=== PATIENT | female | born 1975 | race Caucasian/White ===

== ENCOUNTER → 2017-08-21 15:56 | Outpatient (CLI) | payer OTHER, SELFPAY ==
--- NOTE | 2017-08-21 15:59 | HPBI_ITS ---
MAMMOGRAPHY - BILATERAL SCREENING REASON FOR EXAM: Female, 42 years old. Routine annual screening examination. PERTINENT HISTORY: Non-contributory. TECHNIQUE: Digital bilateral breast jaimie (3D mammographic acquisition) in the CC and MLO projections. 2-D mediolateral oblique (MLO) and craniocaudad (CC) views of both breasts were obtained. CAD: Full Field Digital Mammography with Computer Added Detection was performed. COMPARISON: Comparison is made with prior examination dated August 06, 2016. FINDINGS: Breast Composition: The breasts are extremely dense, which lowers the sensitivity of mammography. There are no dominant masses or suspicious calcifications. No other significant abnormalities are identified. There has been no significant change since the prior study. HPBI/SCREENING MAMM (CAD), BILAT IMPRESSION: Stable bilateral screening mammogram. Yearly follow-up mammogram recommended. (A) ASSESSMENT CATEGORY: BIRADS Category 1: Negative. A letter regarding these results will be sent to the patient by the facility within 30 days. Approximately 10% of breast cancers are not detected by mammography. A normal mammogram should not delay biopsy of a clinically suspicious abnormality. [id number] Electronically Signed: Larry Woo MD at 8:42 EDT Tel [phone], Service support ,
== END ==
PROVIDERS: Visit Provider Obstetrics & Gynecology
DX: Z12.31 Encounter for screening mammogram for malignant neoplasm of breast (principal)
CPT/HCPCS: 77063; 77067

== ENCOUNTER → 2019-01-14 13:27 | Outpatient (CLI) | payer OTHER, SELFPAY ==
--- NOTE | 2019-01-14 13:36 | BI_ITS ---
MAMMOGRAPHY - BILATERAL SCREENING REASON FOR EXAM: Female, 43 years old. Routine annual screening examination. PERTINENT HISTORY: Grandmother with breast cancer. TECHNIQUE: Digital bilateral breast austen (3D mammographic acquisition) in the CC and MLO projections. 2-D mediolateral oblique (MLO) and craniocaudad (CC) views of both breasts were obtained. CAD: Full Field Digital Mammography with Computer Added Detection was performed. COMPARISON: Comparison is made with prior examination August 21, 2017 and July 29, 2016. FINDINGS: Breast Composition: The breasts are extremely dense, which lowers the sensitivity of mammography. There are no dominant masses or suspicious calcifications. No other significant abnormalities are identified. There has been no significant change since the prior study. BI/SCREEN MAMM (CAD) W/AUSTEN BILAT IMPRESSION: Stable bilateral screening mammogram. Yearly follow-up mammogram recommended. (A) ASSESSMENT CATEGORY: BIRADS Category 1: Negative. A letter regarding these results will be sent to the patient by the facility within 30 days. Approximately 10% of breast cancers are not detected by mammography. A normal mammogram should not delay biopsy of a clinically suspicious abnormality. [id number] Electronically Signed: Larry Woo, at 14:48 EDT , Service support ,
== END ==
PROVIDERS: Family Provider Family Medicine; PCP Family Medicine; Referring Provider Obstetrics & Gynecology; Visit Provider Obstetrics & Gynecology
DX: Z12.31 Encounter for screening mammogram for malignant neoplasm of breast (principal)
CPT/HCPCS: 77063; 77067

== ENCOUNTER → 2019-12-20 | Outpatient (CLI) | payer OTHER, SELFPAY ==
[2019-12-23 14:35] LABS: HPV Reflexed? NOT INDICATED
== END | disposition home or self-care (01) ==
LOC: LABSPEC 13:59
PROVIDERS: PCP Family Medicine; Visit Provider Obstetrics & Gynecology
DX: Z12.4 Encounter for screening for malignant neoplasm of cervix (principal)
CPT/HCPCS: 88175; G0145

== ENCOUNTER → 2019-12-24 | Outpatient (CLI) | payer OTHER, SELFPAY ==
--- NOTE | 2019-12-24 07:38 | BI_ITS ---
MAMMOGRAPHY - BILATERAL SCREENING REASON FOR EXAM: Female, 44 years old. Routine annual screening examination. PERTINENT HISTORY: Grandmother with breast cancer. TECHNIQUE: Digital bilateral breast austen (3D mammographic acquisition) in the CC and MLO projections. 2-D mediolateral oblique (MLO) and craniocaudad (CC) views of both breasts were obtained. CAD: Full Field Digital Mammography with Computer Added Detection was performed. COMPARISON: Comparison is made with prior examination of January 14, 2019 and August 21, 2017. FINDINGS: Breast Composition: The breasts are extremely dense, which lowers the sensitivity of mammography. There are no dominant masses or suspicious calcifications. Stable benign-appearing bilateral axillary lymph nodes. No other significant abnormalities are identified. There has been no significant change since the prior study. BI/SCREEN MAMM (CAD) W/AUSTEN BILAT IMPRESSION: Stable bilateral screening mammogram. Yearly follow-up mammogram recommended. (A) ASSESSMENT CATEGORY: BIRADS Category 2: Benign. A letter regarding these results will be sent to the patient by the facility within 30 days. Approximately 10% of breast cancers are not detected by mammography. A normal mammogram should not delay biopsy of a clinically suspicious abnormality. [id number] Electronically Signed: Larry Woo, at 8:33 EDT , Service support ,
== END | disposition home or self-care (01) ==
LOC: OPBI 07:37
PROVIDERS: PCP Family Medicine; Referring Provider Obstetrics & Gynecology; Visit Provider Obstetrics & Gynecology
DX: Z12.31 Encounter for screening mammogram for malignant neoplasm of breast (principal)
CPT/HCPCS: 77063; 77067

== ENCOUNTER 2020-04-07 05:37 | Inpatient (IN) | payer OTHER, SELFPAY ==
[2020-03-06 15:31] VITALS: BMI 23.0
--- NOTE | 2020-03-30 16:09 | EKG12_ITS ---
Test Reason : PRE OP Blood Pressure : / mmHG Vent. Rate : 078 BPM Atrial Rate : 078 BPM P-R Int : 106 ms QRS Dur : 074 ms QT Int : 388 ms P-R-T Axes : 061 056 025 degrees QTc Int : 442 ms Sinus rhythm with sinus arrhythmia with short AL Otherwise normal ECG Confirmed by LAMONT FRANKLIN, KIKI ([id number]), material expeditor WALI NGUYEN ([id number]) on 04/03/2020 1:00:39 PM Referred By: Nikhil La Confirmed By:KIKI MIGUEL MD
[2020-03-30 16:54] LABS: Absolute Lymphocyte Count 2.39 X10^3/uL (0.83-4.51); Absolute Neutrophil Count 2.8 X10^3/uL (2.0-7.7); Basophil# 0.05 X10^3/uL; Basophil% 0.8 % (0-1); Eosinophils% 3.4 % (0-5); Hemoglobin 12.4 g/dL (12.0-15.0); Lymphocyte # 2.39 X10^3/ul (4.0); Lymphocyte % 40.5 % (19-41); Mean Corp Hgb Conc 32.6 g/dL (32-36); Mean Corpuscular Hgb 29.3 pg (27.0-32.0); Mean Corpuscular Volume 89.8 fL (81-99); Mean Platelet Vol. 10.1 fl (6.2-12.0); Monocyte# 0.43 X10^3/uL; Monocyte% 7.3 % (0-10); NRBC Flagged by Analyzer 0 % (0-5); Neutrophil # 2.82 X10^3/uL (2.7-7.7); Neutrophil % 47.8 % (47-70); Platelet Count 313 K/mm3 (150-450); RBC Distribution Width CV 11.9 % (11.6-14.6); RBC Distribution Width SD 39.1 fl (35.1-43.9); Red Blood Count 4.23 M/mm3 (4.2-5.4); White Blood Count 5.9 K/mm3 (4.4-11.0)
[2020-03-30 17:27] LABS: Partial Thromboplast Time 27.7 Seconds (24.1-36.2)
[2020-03-30 17:33] LABS: Anion Gap 4 (5-15); BUN 7 mg/dL (7-18); Calcium,Total 8.2 mg/dL (8.5-10.1); Chloride 107 mmol/L (98-107); Creatinine, Serum 0.78 mg/dL (0.55-1.02); EST Glomerular Filtration Rate 85 mL/min (>60); Est Glom Filt Rate - Afr Amer 103 mL/min (>60); Glucose 96 mg/dL (74-106); Potassium 3.6 mmol/L (3.5-5.1); Sodium Level 138 mmol/L (136-145)
[2020-03-30 17:44] LABS: AST(SGOT) 13 U/L (15-37); Alanine Aminotransfer ALT/SGPT 18 U/L (13-56); Albumin, Serum 3.5 g/dL (3.2-5.0); Alkaline Phosphatase 62 U/L (45-117); Globulin 3.6 g/dL (2.2-4.2); Magnesium 2.3 mg/dL (1.6-2.6); Protein, Total 7.1 g/dL (6.4-8.2)
[2020-03-30 18:02] LABS: HIV - WCH Non-Reactive (Nonreactive)
[2020-04-01 05:07] LABS: HEPATITIS B SURFACE AG Negative (Negative); Hepatitis A AB, Total Negative (Negative); Hepatitis A IgM Antibody Negative (Negative); Hepatitis B Core AB IgM Negative (Negative); Hepatitis B Core Ab Total Negative (Negative); Hepatitis C Ab <0.1 s/co ratio (0.0-0.9)
[2020-04-03 10:34] LABS: Hep B Surface Antibodies Non Reactive (.)
[2020-04-07] VITALS (14 sets, daily range): BP systolic 105–153; BP diastolic 74–101; PULSE 60–103; RESP 14–18; TEMP 36.2–37.3; O2SAT 97–100; BMI 23.8; BMI 23.7
--- NOTE | 2020-04-07 06:00 | HP_ITS ---
Intake Intake Visit Reasons: low back Accompanied by: Spouse Is patient in pain?: Yes Pain scale (1-10): 5 Allergies No Known Allergies Allergy (Unverified 03/31/20 08:05) Medications cholecalciferol (vitamin D3) 25 mcg (1,000 unit) capsule 25 mcg PO DAILY 03/06/20 [History Confirmed 03/31/20] multivitamin 1 tab PO DAILY 03/06/20 [History Confirmed 03/31/20] norethindrone 1.5 mg-ethinyl estradiol 30 mcg(21)/iron 75 mg(7) tablet 1 tab PO DAILY 03/06/20 [History Confirmed 03/31/20] PFSH Surgical History (Updated 03/06/20 @ 15:35 by Nathalie Mcdowell) History of tonsillectomy (Acute) h/o lumbar surgery (Acute) Family History (Updated 03/06/20 @ 15:36 by Nathalie Mcdowell) Mother Colon cancer Father Hypertension Social History (Updated 03/31/20 @ 08:[address] Nikhil La DO) household members: spouse, children Smoking Status: Never smoker alcohol intake: never HPI low back: Surgical H&P: Yes Details: D1 a returns for follow-upParts of this documentation were recorded by a scribe, this documentation accurately reflects the service provided and the decisions made by me, Dr. Nikhil La DO 03/31/20 [id number]. RENEE DOWELL is a 44 year old F here today for her pre-op appointment. In regards to her low back. Reports tingling, denies numbness and stiffness. Pain is rated 5/10 from the pain scale. Has had two previous surgeries, Dr. Pate at [facility] in [place]. Renee returns for follow-up and for her preop she brings her with her. We discussed the surgery at length how would be done what to expect recovery etc. I have explained how the surgery would be performed we also spoke of possible risks and complications including possible risks and complications such as coma paralysis infection meningitis dural leak blood clot in the legs blood clot in the lungs microinfarction stroke damage to viscus structures damage to major blood vessels uncontrollable bleeding loss of lower extremity among others. She understood all possible risks and complications. She voluntarily signed the operative permit. I will see her again at surgery in 1 week. ROS [facility] Reports system reviewed and no additional complaints, except as docu, Reports joint pain, Denies joint swelling, Denies numbness, Denies stiffness, Reports tingling Skin/Breast Reports system reviewed and no additional complaints, except as docu, Denies dry skin, Denies redness, Denies lesions, Denies new lesions, Denies non-healing lesions, Denies itching, Denies rash, Denies skin ulcer, Denies sores, Denies wounds Neuro Yes system reviewed and no additional complaints, except as docu, No numbness, Yes tingling Coding Level of Care Code Off vis,est,level 2 Time Spent (min) 25
[2020-04-07 06:02] LABS: Internal QC Validated? YES +Cl - CLEAR BKGD; Pregnancy, Urine Negative Negative
[2020-04-07 06:26] LABS: Bedside Glucose 123 mg/dL (70-110)
[2020-04-07] MEDS: Lactated Ringers 1,000 ML 40 ML IV (06:37)
[2020-04-07] MEDS: Acetaminophen 500 MG Tablet 1000 MG PO (06:39)
--- NOTE | 2020-04-07 07:30 | RAD_ITS ---
STUDY: X-RAY - LUMBAR SPINE REASON FOR EXAM: Female, 44 years old. 360 fusion l5-s1 repeat lamenectomy, right TECHNIQUE: 2 view(s) of the lumbar spine were obtained. COMPARISON: None FINDINGS: Crosstable radiographs of the lumbosacral spine were obtained in the operating room during surgery and submitted for interpretation. RAD/Spine 1 View Any Level IMPRESSION: Radiographs during lumbar spine surgery. Electronically Signed: Ruben Fonseca MD at 12:28 EDT Tel , Service support ,
[2020-04-07] MEDS: Heparin 10,000 UNITS/10 ML Vial 10000 UNITS ×2 (08:00)
[2020-04-07] MEDS: Cefazolin 2 GM in 0.9% Normal Saline 100 ML IV (08:41)
[2020-04-07] MEDS: Lactated Ringers 1,000 ML 100 ML IV ×6 (10:25→16:36)
--- NOTE | 2020-04-07 10:42 | PCM.OPRPT ---
Problem List (1) DDD (degenerative disc disease) Status: Acute Report of Operation Date of Procedure: 04/07/20 - Surgeon Dr. Nikhil La. Co-surgeon Dr. Gabriel Ward Pre-Operative Diagnosis: Spine disease with compression L5-S1 with degenerative disc disease and recurrence after recent spine surgery with radiculopathy. Post-Operative Diagnosis: Same Surgery/Procedure Performed:: 1. Anterior lumbar interbody fusion L5-S1 Type of Anesthesia:: General Description of Procedure: Patient brought to the operating room. Underwent general anesthesia. Given the appropriate antibiotics were given.. Appropriate monitoring lines were all placed. Was prepped and draped in a sterile fashion. We then made a incision left lower quadrant just past the midline to the right and out towards the left anterior superior leg spine. We then dissected down onto the fascia and excised the rectus sheath and freed this up inferior and superior. We took this lateral to the obliques and just lateral to the rectus muscle. Then going into this we got into the retroperitoneal plane onto the psoas and then pulling towards the right. We put in the Omni retractor. Retractors were placed and we could see the ureter we are below this in the retroperitoneal space we pulled this to the right and superior. We could see the area of the L5-S1 space. Dissecting down there a couple venous branches are all ligated between clips. We then visualized the L5-S1 disc space. We confirmed this with x-ray. And then with Dr. La underwent the complete L5-S1 discectomy. Also freed up onto the endplate and the bone of L5 and S1 to build to place the plate at the end. Then a 8 degree 25 mm small cage was placed after the space was dilated up with trials. A plate was placed on top with 30 mm screws into L5 x2 and 225 mm screws placed in the sacrum. We released the retractors there was good hemostasis noted throughout. We then closed the anterior fascia with 1 PDS. Then 3-0 Vicryl in layers and 4-0 Monocryl and Dermabond for the skin.
--- NOTE | 2020-04-07 10:43 | PCM.OPRPT ---
Report of Operation Date of Procedure: 04/07/20 Description of Surgical Findings:: Preoperative diagnosis: Recurrent disc herniation L5-S1 with right S1 radiculopathy intractable pain and neurological deficit Postoperative diagnosis: The same Procedure: #1 anterior lumbar interbody fusion L5-S1 #2 Insertion of titanium cage L5-S1 #3 Internal fixation with anterior spine plate and locking titanium screws #4 Bone marrow aspirate right iliac crest Cosurgeons: Dr. Nikhil La and Dr. Gabriel Ward engineer second assistant was Yogesh PIERCE Anesthesia: [facility] The estimated blood loss: 50 cc Drains none Complications: None Patient was taken to the OR where she was placed in supine position on the operating table she was then placed under general endotracheal anesthesia. The abdomen and right crest were then prepped and draped in the standard fashion. The approach as described in Dr. Ward's surgical summary. Once exposed the L5-S1 disc anteriorly he put a needle marker in place to confirm that we were at the right level this was done with a plain x-ray. I then remove the anterior annulus with a 10 blade then removed just from within the disc space with both pituitary rongeurs and ring curettes and bowl curettes. Note that her disc space was decreased and very tight. We eventually took her measurements for the cage we used a 10 mm high 35 mm wide and 25 mm deep titanium cage. This cage was made by [facility]. Note that throughout the insertion of the cage and the subsequent plate the Dr. Ward was instrumental in a punching holes in the vertebra screw insertion positioning of the plate etc. I then used a broach to broach the space noted I used both a 15 degree 10 mm height broach and a 8 degree 10 mm high broach this was done repeatedly to give us just a bit more space and to get us good bleeding bone after I had removed all the cartilage off the endplates with the curettes. In the interim while waiting for x-ray I was able to punch small skin incision over the right ASIS. I then tamped in a Jamshidi needle deep enough to obtain blood we then obtained 60 cc of bone marrow aspirate and handed this off to an surgeon's assistant. The fish roe technician then spun the BMA down the stem cells from the plasma and the red cells in collected the stem cells for us. These were concentrated 8-10 times. I then filled the cage with spongy allograft bone that was soaked in the patient's own stem cells we then thoroughly irrigated the space and afterwards we tamped the cage in and made it flush with the front of the vertebra. We then applied a 21 mm spine plate centered at and punched the first of 4 holes 2 into L5 and 2 into S1 these were done one at a time using the awl and following with the appropriate length screw we used 30 mm screws at of L5 and [address] Ward did much of this work. We then took an intraoperative x-ray that demonstrated excellent position of the plate the screws and the cage. We then placed an amnionic membrane over the plate to prevent adhesions to the peritoneum or other structures. The closure of the of the abdomen is then described in Dr. Ward's operative summary
[2020-04-07] MEDS: THROMBIN (RECOMBINANT) 20,000 UNIT VIAL 20000 UNIT TOPICAL (12:00)
--- NOTE | 2020-04-07 14:57 | OP.PCM_ITS ---
Report of Operation Date of Procedure: 04/07/20 Description of Surgical Findings:: Preoperative diagnosis herniated disc L5-S1 Postoperative diagnoses are the same Procedure was repeat lumbar laminectomy L5-S1 on the right #2 posterior fusion L5-S1 and #3 internal segmental fixation Surgeon was Dr. La assistant plant manager was Yogesh PIERCE Anesthesia was administered by [facility] Drains: Medium Hemovac Complications: None Patient was taken to the OR where first she had an anterior lumbar interbody fusion performed following this she was then moved from 1 OR table to another she was then placed in prone position on the Gabriel frame after appropriate position with care to protect the bony prominences. Care was also taken to protect her ulnar nerves of both elbows the facial features the cervical spine and her breasts. Back was then prepped and draped standard fashion. First I removed the old scar through long ellipse. I then opened the subcutaneous tissues using cautery down to the lumbar fascia then elevated the subcutaneous tissues off of the lumbar fascia on either side. I then opened the right side using cautery and then elevated paravertebral muscles off the lamina of S1 and the lamina of L5. Cautery I was able to identify the parameters of the old laminectomy. I then began releasing the the scar tissue in the dura off of the bone starting at the top of the laminectomy and all the way down including the top of S1. Fashion a slowly moved down and began releasing adhesions off of the disc underneath the S1 nerve root. In addition I went ahead and follow the nerve root out performing foraminotomies. I released adhesions on the base of the nerve and on the dura. Once slowly remove the adhesions I was able to retract the dura and the nerve root medialward exposing the disc that was protruded I then cut into the disc remove the annulus and removed more disc from within the disc space down to the cage that we had inserted anteriorly. This along with the opening of the lateral recess completely decompressed her right S1 nerve root. Note that thorough irrigation was carried out every 10 to 15 minutes in the course of the case. Note that apparently when I opened the left side which I had to do an elevated the paravertebral muscles off the lamina L5 and S1 on the opposite side I noted that the lamina on that side also had rounded edges and I released some of that from underneath the lamina and found that she had no ligamentum flavum here which means that when they did her surgery they actually did laminectomies on both sides. In addition they removed the bottom half of the L5 spinous process. She had a planning leftover for internal fixation. Placed the axial device from the spinous process of S1 to the spinous process of L5 we used a 40 mm implant. Once positioned and put in place the locking mechanisms were activated. At that over the laminectomy site we did put amniotic membrane to prevent new adhesions from forming. We then inserted a medium Hemovac drain and began closure. The lumbar fascia was reapproximated using #1 Vicryl for closure of the subcutaneous tissues in interrupted fashion with 2-0 Vicryl and skin was approximated using skin clips sterile dressings were then applied.
[2020-04-07] MEDS: Cefazolin 1 GM/50 ML BAG IV (18:00)
[2020-04-07] MEDS: diazePAM 5 MG Tablet PO (20:53)
[2020-04-07] MEDS: Morphine 2 MG/ML Syringe IV (22:04)
[2020-04-08] MEDS: HYDROcodone Bitartrate/Apap 5/325 Tablet PO ×2 (00:13→17:57)
[2020-04-08] MEDS: diazePAM 5 MG Tablet PO ×5 (00:14→22:46)
[2020-04-08] MEDS: Cefazolin 1 GM/50 ML BAG IV (00:15)
[2020-04-08 04:03] VITALS: BP 127/81; PULSE 91; RESP 16; TEMP 37.2; O2SAT 97
[2020-04-08] MEDS: Morphine 4 MG/ML Syringe IV ×3 (04:26→15:18)
--- NOTE | 2020-04-08 06:12 | PCM.CONS.GEN ---
Problem List (1) DDD (degenerative disc disease) Status: Acute Reason for Consult Date of Consultation: 04/08/20 Reason for Consultation: back pain History of Present Illness: The patient is a 44 year old F with a significant history of recurrent L5-S1 disc herniation with right S1 radiculopathy status post lumbar interbody fusion postop day 1 for which internal medicine service has been consulted for medical management. Patient reports mild right lower extremity numbness surgery.. Of note before the surgery she had right lower extremity numbness. She is concerned that after the surgery she has developed left lower extremity spasms beginning from her left gluteal fold and radiating down to her left leg. Nursing team notified primary doctor and patient's pain medication were adjusted. Past Medical History Medical History: Medical History (Last Reviewed 04/08/20 @ 06:[address] Hasmukh Alvarez MD) Denies previous medical history Allergies No Known Allergies Allergy (Unverified 03/31/20 08:05) Home Medications: Ambulatory Orders Medication Instructions Recorded cholecalciferol (vitamin D3) 25 25 mcg PO DAILY 03/06/20 mcg (1,000 unit) capsule multivitamin 1 tab PO DAILY 03/06/20 norethindrone 1.5 mg-ethinyl 1 tab PO DAILY 03/06/20 estradiol 30 mcg(21)/iron 75 mg(7) tablet hydrocodone 10 mg-acetaminophen 1 tab PO Q4H PRN #60 tab 03/31/20 325 mg tablet Surgical History: Surgical History (Last Reviewed 04/08/20 @ 06:[address] Hasmukh Alvarez MD) History of tonsillectomy Z90.89 h/o lumbar surgery 12/31/17, 11/18/19 Smoking Status: Never smoker Tobacco Use: Non-smoker - *Family History Maternal Family History: Family History (Last Reviewed 04/08/20 @ 06:[address] Hasmukh Alvarez MD) Mother Colon cancer Father Hypertension Review of Systems Constitutional: Denies: Chills, Fever, Weight Change HEENT: Denies: Head Aches, Sinus Congestion, Sinus Drainage Cardiovascular: Denies: Chest Pain, Palpitations Respiratory: Denies: Cough, Shortness of breath at rest, Sputum production Gastrointestinal: Denies: Abdominal Pain, Nausea, Vomiting Genitourinary: Denies: Dysuria Musculoskeletal: Reports: Back Pain, Joint Tenderness, Leg Pain Skin: Denies: Rash, Wounds Neurological: Reports: Numbness - Right lower extremity. Denies: Focal weakness, Tingling Psychiatric: Denies: Anxiety, Depression, Homicidal Ideations, Suicidal Ideations Hematologic/ Lymphatic: Denies: Easy Bruising, Easy Bleeding Patient Problems: Active and Suspected Problems (Last Reviewed 04/08/20 @ 06:[address] Hasmukh Alvarez MD) DDD (degenerative disc disease) (Acute) - Physical Exam Vitals/I&O's: Vital Signs Temp Pulse Resp BP Pulse Ox 98.9 F 91 16 127/81 H 97 04/08/20 04:03 04/08/20 04:03 04/08/20 04:03 04/08/20 04:03 04/08/20 04:03 Oxygen Flow Rate (L/min) 6 Oxygen Delivery Method Room Air Weight: 60.781 kg Body Mass Index (BMI) 23.7 Intake and Output for Last 24 Hours 04/06/20 04/07/20 04/08/20 23:59 23:59 23:59 Intake Total 3461.84 / 3461.84 1040 / 1040 Output Total 1600 / 3600 1999 / 1999 Balance 1861.84 / -138.16 -960 / -960 General: Alert, Oriented x3, Cooperative HEENT: Atraumatic, PERRLA, EOMI, Normocephalic Neck: Supple, No JVD, Negative Carotid Bruits Lungs: Clear to auscultation, Normal air movement, No rhonchi, No wheeze, No rales Cardiovascular: Regular rate, Regular Rhythm, Normal S1, Normal S2, No murmurs Abdomen: Bowel Sounds Present, Soft, Tender - Lower abdomen dressing sites., Appropriate for Gestational Age, - - Dry dressing lower abdomen. Extremities: No edema, Capillary Refill Less than 3 Seconds Skin: - - Dry dressing at lower back from which Hernandez rosas drainage emanates from. Musculoskeletal: Tenderness - Tender at dressing area at lower back. Neurological: Cranial nerves II-XII grossly intact, - - Strength 5 out of 5 at bilateral lower extremity. Psych/Mental Status: Normal Affect, Appropriate Laboratory Results 04/07/20 06:18: POC Glucose 123 H Current Medications Hydrocodone Bitart/Acetaminophen (Hydrocodone Bitartrate/Apap 5/325 Tablet) 2 tablet PO Q6H PRN PRN PRN Reason: Pain Score 6-10 Last Admin: 04/08/20 00:13 Dose: 2 tablet Documented by: Diazepam (Diazepam 5 Mg Tablet) 5 mg PO Q4H PRN PRN PRN Reason: Muscle Spasms Last Admin: 04/08/20 04:26 Dose: 5 mg Documented by: Enteral Nutritional Formula (Ensure Surgery 237 Ml Liquid) 237 ml PO TIDCM [facility] Last Admin: 04/07/20 18:03 Dose: Not Given Documented by: Lactated Ringer's () 1,000 mls @ 100 mls/hr IV .Q10H [facility] Last Infusion: 04/08/20 02:30 Dose: 0 mls/hr Documented by: Influenza Virus Vaccine Quadrival (Influenza Vaccine (6mos+)/Pf 0.5 Ml Syringe) 0.5 ml IM .ONCE ONE Stop: 04/08/20 10:01 Morphine Sulfate (Morphine 4 Mg/Ml Syringe) 2 - 4 mg IV Q2H PRN PRN PRN Reason: Pain Score 6-10 Last Admin: 04/08/20 04:26 Dose: 4 mg Documented by: Morphine Sulfate (Morphine 2 Mg/Ml Syringe) 2 - 4 mg IV Q2H PRN PRN PRN Reason: Pain Score 6-10 Last Admin: 04/07/20 22:04 Dose: 2 mg Documented by: Ondansetron HCl (Ondansetron 4 Mg/2 Ml Vial) 4 mg IV Q8H PRN PRN PRN Reason: NAUSEA Sodium Chloride (0.9% Nacl Peripheral Flush Adult/Peds) 5 - 15 ml IV UD PRN PRN Reason: SALINE FLUSH Assessment/Plan All Active Problems (Last Reviewed 04/08/20 @ 06:[address] Hasmukh Alvarez MD) DDD (degenerative disc disease) (Acute) Recurrent L5-S1 disc herniation with right S1 radiculopathy status post lumbar interbody fusion Independence as needed, Valium as needed; morphine IV as needed. Antiemetics in place. Will add bowel regimen. Pain management by primary. Encouraged to use incentive spirometer that was by her bedside. DVT prophylaxis SCD and KIARA hose in place. Office Visits / Consults: [id number] IP Consult L1
[2020-04-08 09:13] VITALS: O2SAT 98
[2020-04-08 09:30] VITALS: PULSE 80
[2020-04-08 09:39] VITALS: BP 132/90; PULSE 94; RESP 16; TEMP 37.2; O2SAT 98
[2020-04-08] MEDS: dexAMETHasone 4 MG/ML Vial 8 MG IV (11:51)
[2020-04-08] MEDS: 0.9% NaCl Peripheral Flush Adult/Peds IV ×3 (11:51→17:57)
--- NOTE | 2020-04-08 13:00 | CASEMGMT ---
RN CM Face to Face with patient for initial transition planning/care coordination assessment. RN CM introduced self and role at [facility]. Patient lying in bed, alert and oriented. Patient willing to participate in assessment and is able to answer all questions appropriately. Care providers, pharmacy, and demographics verified. Patient wishes to discharge home, denies need for home health at this time. Patient states she has no further needs or concerns at this time. CM to follow for discharge planning needs that may arise. PCP: Nehemiah Specialists: Abhinav spinal surgeon Preferred Pharmacy: [facility] Insurance: MMO Prescription Benefit: yes Living Will/HPOA: none LNOK: Living Arrangements: Patient lives with and children in a one story home. Patient state she was independent at home prior to surgery. Patient states mother will be staying with patient when she returns home. Transportation: DME/HHC: Patient denies DME or previous HHC. Will monitor for need for walker at discharge. Disposition Plan: Patient to discharge home with family support and follow-up plans in place. Jennifer LONGO, RN, CM
--- NOTE | 2020-04-08 14:55 | PCM.PN.BLA ---
Progress Note Renee is seen on rounds. Last time he got a call from her nurse she had severe pain down the left leg buttocks and thigh that she did not have prior to surgery. The right leg pain that we did the surgery for on the right side is completely gone. However this other pain is new. I examined her and found that she has very positive tension signs and straight leg raising on the left side. She is describing an S1 distribution. She has mild peroneal weakness on the left as compared to the right. Again points to the S1 nerve root. Splane to her that I can think of 2 possibilities. The first 1 is that is possibly we pushed a piece of disc out on the left side and that could be the source of her pain. The second possibility is that we could have broken a part of the vertebral body at the bottom that could be pressing on the nerve. This actually happened to me one time about 15 [address] scan is probably in order and we will do that tomorrow. In the meantime at noon we started Decadron 8 mg. We will decrease the dose every 6 hours to 4 mg for 2 more doses and then to 2 mg for 2 doses after that. Hopefully by tomorrow the nerve will feel better and she will be better able to withstand the CT scan. Other than that incisions are healing well.
[2020-04-08 15:20] VITALS: BP 132/91; PULSE 87; RESP 16; TEMP 36.9; O2SAT 97
[2020-04-08] MEDS: dexAMETHasone 4 MG/ML Vial IV (17:57)
[2020-04-08 20:19] VITALS: BP 128/90; PULSE 93; RESP 16; TEMP 36.7; O2SAT 98
[2020-04-09] MEDS: 0.9% NaCl Peripheral Flush Adult/Peds IV ×4 (00:36→12:31)
[2020-04-09] MEDS: dexAMETHasone 4 MG/ML Vial IV ×3 (00:36→12:31)
[2020-04-09 02:20] VITALS: BP 125/81; PULSE 89; RESP 18; TEMP 36.6; O2SAT 98
[2020-04-09] MEDS: HYDROcodone Bitartrate/Apap 5/325 Tablet PO ×3 (05:54→18:24)
[2020-04-09] MEDS: diazePAM 5 MG Tablet PO ×4 (05:54→22:32)
[2020-04-09 08:13] VITALS: BP 116/76; PULSE 77; RESP 16; TEMP 36.9; O2SAT 97
[2020-04-09 08:15] VITALS: PULSE 72
--- NOTE | 2020-04-09 09:00 | CT_ITS ---
We are attempting to reach an attending provider to discuss findings. An addendum with communication details will be sent when the communication is complete. STUDY: CT LUMBAR SPINE WITHOUT CONTRAST REASON FOR EXAM: Female, 44 years old. LEFT LEG PAIN S/P L5-S1 360 FUSION 04/07/20, HX BILATERAL L5-S1 LAMINECTOMY RADIATION DOSAGE (If Supplied By Facility): CTDIvol = ( 11.55 ) mGy, DLP = ( 433.92 ) mGycm TECHNIQUE: The patient was scanned in a multi detector CT scanner. High resolution transaxial imaging was performed. Images were obtained from T12 to sacrum. Sagittal and coronal images were reconstructed. Individualized dose optimization techniques were used for this CT. COMPARISON: None FINDINGS: There is straightening of the normal lumbar lordosis. There is no substantial scoliosis. There is a been a recent lumbar spinal fusion at the level of L5-S1 postop day 2. There is a visualized disc spacer. Allowing for any positional phenomenon and disc space areas left of midline with the border along the left side of the vertebral body with a slight overhang of at least 2.8 mm. Sagittal view 56 demonstrates the disc space or within the neural foramen are projected over the neural foramen with moderate to severe left neural foraminal narrowing. There is bony osteophytosis extending into the canal with mild central stenosis. There is a posterior spinal fusion of the spinous processes at L5-S1. There is moderate right neural foraminal narrowing. L1-2: Normal endplates. Normal disc height and morphology. Normal bilateral facet joints. Normal central canal and bilateral lateral recesses. Normal bilateral intervertebral neural foramina. L2-3: Normal endplates. Normal disc height and morphology. Normal bilateral facet joints. Normal central canal and bilateral lateral recesses. Normal bilateral intervertebral neural foramina. L3-4: Normal endplates. Normal disc height and morphology. Normal bilateral facet joints. Normal central canal and bilateral lateral recesses. Normal bilateral intervertebral neural foramina. L4-5: Normal endplates. Normal disc height and morphology. Normal bilateral facet joints. Normal central canal and bilateral lateral recesses. Normal bilateral intervertebral neural foramina. L5-S1: There is an anterior lumbar spine plate with cortical screws. There is a been a recent lumbar spinal fusion at the level of L5-S1 postop day 2. There is a visualized disc spacer. Allowing for any positional phenomenon and disc space areas left of midline with the border along the left side of the vertebral body with a slight overhang of at least 2.8 mm. Sagittal view 56 demonstrates the disc space or within the neural foramen are projected over the neural foramen with moderate to severe left neural foraminal narrowing. There is bony osteophytosis extending into the canal with mild central stenosis. There is a posterior spinal fusion of the spinous processes at L5-S1. There is moderate right neural foraminal narrowing. There is a midline band surgical skin gabe and underlying gas. There is a visualize drain to the right of the spinous processes. There is a visualized Smith catheter within the bladder. There is a small amount of free fluid within the pelvis with mildly complex Hounsfield units which is likely postoperative. There is postoperative change within the retroperitoneum the level of the bifurcation. There is partially visualized multiple gallstones in the gallbladder. There are partially visualized subcentimeter peritoneal lymph nodes. CT/Spine Lumbar without Contrast IMPRESSION: Status post spinal fusion L5-S1. There is a left lateral disc spacer which is left of midline. The sagittal view shows moderate to severe neural foraminal narrowing. Mild central stenosis. [id number] right neural foramina narrowing. Postoperative change. Including free fluid in the pelvis, fluid in the retroperitoneum postoperative change retroperitoneum. Incidental visualization of cholelithiasis. Electronically Signed: Zainab Nathan MD at 10:52 EST Tel , Service support ,
[2020-04-09] MEDS: Morphine 4 MG/ML Syringe IV (09:05)
--- NOTE | 2020-04-09 11:38 | PN_ITS ---
<Robel Devine - Last Filed: 04/09/20 11:38> Patient Problems: Active and Suspected Problems (Last Reviewed 04/08/20 @ 06:[address] Hasmukh Alvarez MD) DDD (degenerative disc disease) (Acute) Reason for Visit: Postop pain Subjective: Patient underwent spinal surgery with Dr. La. Prior surgery had right-sided back complaints. After surgery developed knifelike left leg pain radiating from buttocks down the lateral aspect of her left leg to her foot. She also has bivu-fpb-kcygziy sensation in her left toes and she feels that she has limited mobility of her left toe stating that she cannot cross them, used to be able to cross them. She states that if she is laying almost flat she has no pain, if she sits up at all the knifelike pain comes, and if she tries to move in bed her pain comes back. She also has intermittent left leg muscle spasms regardless of bodily position. She has a catheter in place. She has no change in her control of her bowel Vitals/I&O's: Vital Signs Temp Pulse Resp BP Pulse Ox 98.4 F 72 16 116/76 97 04/09/20 08:13 04/09/20 08:15 04/09/20 08:13 04/09/20 08:13 04/09/20 08:13 Oxygen Flow Rate (L/min) 6 Oxygen Delivery Method Room Air Weight: 134 lb Body Mass Index (BMI) 23.7 Intake and Output for Last 24 Hours 04/07/20 04/08/20 04/09/20 23:59 23:59 22:59 Intake Total 3461.84 / 3461.84 1340 / 1340 500 / 500 Output Total 1600 / 3600 6470 / 6470 750 / 750 Balance 1861.84 / -138.16 -5130 / -5130 -250 / -250 General: Alert, Oriented x3, Cooperative HEENT: Atraumatic, PERRLA, EOMI, Normocephalic Neck: Supple, No JVD, Negative Carotid Bruits Lungs: Clear to auscultation, Normal air movement Cardiovascular: Regular rate, No murmurs Abdomen: Bowel Sounds Present, Soft, Non Tender Extremities: No edema, Capillary Refill Less than 3 Seconds Skin: No rashes, No breakdown Musculoskeletal: No Tenderness to Palpation of Joints or Extremities, - - pms intact and equal BL feet Neurological: Cranial nerves II-XII grossly intact Psych/Mental Status: Normal Affect, Appropriate, Alert and oriented to time, place, person, mood and affect Current Medications Hydrocodone Bitart/Acetaminophen (Hydrocodone Bitartrate/Apap 5/325 Tablet) 2 tablet PO Q6H PRN PRN PRN Reason: Pain Score 6-10 Last Admin: 04/09/20 05:54 Dose: 2 tablet Documented by: Dexamethasone Sodium Phosphate (Dexamethasone 4 Mg/Ml Vial) 4 mg IV Q6H АННА Stop: 04/09/20 12:01 Last Admin: 04/09/20 05:53 Dose: 4 mg Documented by: Diazepam (Diazepam 5 Mg Tablet) 5 mg PO Q4H PRN PRN PRN Reason: Muscle Spasms Last Admin: 04/09/20 05:54 Dose: 5 mg Documented by: Morphine Sulfate (Morphine 4 Mg/Ml Syringe) 2 - 4 mg IV Q2H PRN PRN PRN Reason: Pain Score 6-10 Last Admin: 04/09/20 09:05 Dose: 4 mg Documented by: Morphine Sulfate (Morphine 2 Mg/Ml Syringe) 2 - 4 mg IV Q2H PRN PRN PRN Reason: Pain Score 6-10 Last Admin: 04/07/20 22:04 Dose: 2 mg Documented by: Ondansetron HCl (Ondansetron 4 Mg/2 Ml Vial) 4 mg IV Q8H PRN PRN PRN Reason: NAUSEA Senna/Docusate Sodium (Senna/Docusate Sodium 1 Tablet) 2 tablet PO DAILY PRN PRN PRN Reason: CONSTIPATION Sodium Chloride (0.9% Nacl Peripheral Flush Adult/Peds) 5 - 15 ml IV UD PRN PRN Reason: SALINE FLUSH Last Admin: 04/09/20 09:05 Dose: 10 ml Documented by: STROKE Vital Signs/Narrative: Vital Signs Temp Pulse Resp BP Pulse Ox 04/09/20 08:15 72 04/09/20 08:13 98.4 F 77 16 116/76 97 Medical Necessity - Tobacco Use Smoking Status: Never smoker Tobacco Use: Non-smoker Assessment/Plan All Active Problems (Last Reviewed 04/08/20 @ 06:[address] Hasmukh Alavrez MD) DDD (degenerative disc disease) (Acute) 1. 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 Postop from lumbar interbody fusion. Ongoing new left-sided radiculopathy. CT shows left lateral disc spacer which is left of midline, moderate to severe neural foraminal narrowing. Mild central stenosis, mild to moderate right neural foraminal narrowing. Postop changes including free fluid in the pelvis, fluid in the retroperitoneum. She has been placed on Decadron per Dr. La. -The patient states that her initial spinal issues came on with no inciting event, denies any initial trauma. DVT ppx: contraindicated 2/ above Thank you for the opportunity to participate in the care of this patient. This patient was seen by Robel Devine PA-C under the supervision of Doctor Evelina <Denton Hoyt F - Last Filed: 04/09/20 13:57> Vitals/I&O's: Vital Signs Temp Pulse Resp BP Pulse Ox 98.4 F 72 16 116/76 97 04/09/20 08:13 04/09/20 08:15 04/09/20 08:13 04/09/20 08:13 04/09/20 08:13 Oxygen Flow Rate (L/min) 6 Oxygen Delivery Method Room Air Weight: 134 lb Body Mass Index (BMI) 23.7 Intake and Output for Last 24 Hours 04/07/20 04/08/20 04/09/20 23:59 23:59 22:59 Intake Total 3461.84 / 3461.84 1340 / 1340 500 / 500 Output Total 1600 / 3600 6470 / 6470 750 / 750 Balance 1861.84 / -138.16 -5130 / -5130 -250 / -250 Current Medications Hydrocodone Bitart/Acetaminophen (Hydrocodone Bitartrate/Apap 5/325 Tablet) 2 tablet PO Q6H PRN PRN PRN Reason: Pain Score 6-10 Last Admin: 04/09/20 12:35 Dose: 2 tablet Documented by: Diazepam (Diazepam 5 Mg Tablet) 5 mg PO Q4H PRN PRN PRN Reason: Muscle Spasms Last Admin: 04/09/20 12:35 Dose: 5 mg Documented by: Morphine Sulfate (Morphine 4 Mg/Ml Syringe) 2 - 4 mg IV Q2H PRN PRN PRN Reason: Pain Score 6-10 Last Admin: 04/09/20 09:05 Dose: 4 mg Documented by: Morphine Sulfate (Morphine 2 Mg/Ml Syringe) 2 - 4 mg IV Q2H PRN PRN PRN Reason: Pain Score 6-10 Last Admin: 04/07/20 22:04 Dose: 2 mg Documented by: Ondansetron HCl (Ondansetron 4 Mg/2 Ml Vial) 4 mg IV Q8H PRN PRN PRN Reason: NAUSEA Senna/Docusate Sodium (Senna/Docusate Sodium 1 Tablet) 2 tablet PO DAILY PRN PRN PRN Reason: CONSTIPATION Sodium Chloride (0.9% Nacl Peripheral Flush Adult/Peds) 5 - 15 ml IV UD PRN PRN Reason: SALINE FLUSH Last Admin: 04/09/20 12:31 Dose: 10 ml Documented by: Addendum: Dr. Hoyt I personally examined the patient and reviewed the chart. I agree with the above. 44-year-old female has had multiple spine surgeries secondary to an L5- S1 disc bulge. She just had repeat surgery for fusion however postoperatively she had significant left-sided pain which had never had before. She was started on Decadron by surgery and has had decent improvement in her symptoms however she had a CT scan today which did show a disc bulge and protrusion to the left and therefore she will be kept here in the hospital for surgical repair on Friday. No significant red flag symptoms. Inpatient E&M: 09210 [facility] Hosp L2
--- NOTE | 2020-04-09 11:38 | PCM.PN.BLA ---
Progress Note The patient is seen on rounds. I went to review the CT scan that was done this morning of the L5-S1 space. I found that the implant is off-center to the left. However I doubt that that is the source of her leg pain. Her leg pain is described as S1 radiculopathy not an L5 radiculopathy. There is also a soft tissue density on the left side that would be more compatible with an S1 radiculopathy. Discussed the case with the radiologist that read it Dr. Nathan. In addition I reexamined the patient and visited with her. Her of the findings. We we will schedule her for a laminectomy of a repeat nature on the left side for me to go explore the S1 nerve root. Of course will move up and explore the L5 nerve root to make sure that there is no significant pressure on that nerve. The patient does feel significantly better no doubt because of the steroids that she is on. In addition I change her dressing the incision is healing well and the drain was removed. Strength while she still has weakness of the peroneals on the left compared to the right but is only minimal. The abdomen is doing well she does not have that much pain at all in addition she does not have much back pain either only the pain in her buttocks and goes down her thigh and down the back of the calf. I will make rounds on her again tomorrow STROKE Vital Signs/Narrative: Vital Signs Temp Pulse Resp BP Pulse Ox 04/09/20 08:15 72 04/09/20 08:13 98.4 F 77 16 116/76 97
[2020-04-09 14:27] VITALS: BP 121/80; PULSE 80; RESP 16; TEMP 37; O2SAT 96
[2020-04-09 19:55] VITALS: BP 128/83; PULSE 80; RESP 18; TEMP 36.7; O2SAT 99
[2020-04-10 02:05] VITALS: BP 136/88; PULSE 70; RESP 18; TEMP 36.8; O2SAT 98
[2020-04-10] MEDS: HYDROcodone Bitartrate/Apap 5/325 Tablet PO ×3 (02:08→18:22)
[2020-04-10] MEDS: diazePAM 5 MG Tablet PO ×5 (02:49→22:49)
[2020-04-10] MEDS: Morphine 2 MG/ML Syringe IV ×3 (06:24→15:06)
[2020-04-10] MEDS: 0.9% NaCl Peripheral Flush Adult/Peds IV ×2 (06:25→14:30)
[2020-04-10 07:52] VITALS: BP 134/95; PULSE 76; RESP 18; TEMP 36.4; O2SAT 100
--- NOTE | 2020-04-10 12:45 | PCM.PN.BLA ---
Progress Note Patient is seen on rounds. He is scheduled for laminectomy on the left side at 730 tomorrow morning. I explained to the patient what we would do try to relieve her left-sided symptoms. On examination she has weakness of the EHL on the left as compared to the right and also has weakness of the peroneals on the left as compared to the right. Has some weakness of the anterior tibialis on the left as compared to the right. Her dressing is dry I suspect that the lateralization of the implant is part of the problem it can probably be tapped back toward the midline from the back. That will be our goal tomorrow. In spite of that she does have a 1+ posterior tibialis reflex bilaterally. This is self is a good sign as to the prognosis. We discussed possible risks and complications associated with surgery including possibility of dural leak failed to relieve the symptoms blood clot in the legs blood clot in the lungs microinfarction stroke among others. Should the possible risks and complications I will see her again at surgery tomorrow
[2020-04-10 12:46] VITALS: BP 138/90; PULSE 73; RESP 18; TEMP 37.2; O2SAT 97
--- NOTE | 2020-04-10 13:43 | PCM.PN.HOSP ---
<Robel Devine - Last Filed: 04/10/20 13:43> Patient Problems: Active and Suspected Problems (Last Reviewed 04/08/20 @ 06:[address] Hasmukh Alvarez MD) DDD (degenerative disc disease) (Acute) Reason for Visit: left LE radiculopathy Subjective: pt was able to sit up, stand, and take a few steps yesterday, although she had severe pain in the left leg described as burning with standing and walking. No SOB/cough/fever/chills. Pain, spasms, mildly better today. Vitals/I&O's: Vital Signs Temp Pulse Resp BP Pulse Ox 98.9 F 73 18 138/90 H 97 04/10/20 12:46 04/10/20 12:46 04/10/20 12:46 04/10/20 12:46 04/10/20 12:46 Oxygen Flow Rate (L/min) 6 Oxygen Delivery Method Room Air Weight: 134 lb 0.657 oz Body Mass Index (BMI) 23.7 Intake and Output for Last 24 Hours 04/09/20 04/09/20 04/10/20 00:59 23:59 23:59 Intake Total 1040 / 1040 Output Total 1200 / 1200 Balance -160 / -160 General: Alert, Oriented x3, Cooperative HEENT: Atraumatic, PERRLA, EOMI, Normocephalic Neck: Supple, No JVD, Negative Carotid Bruits Lungs: Clear to auscultation, Normal air movement Cardiovascular: Regular rate, No murmurs Abdomen: Bowel Sounds Present, Soft, Non Tender Extremities: No edema, Capillary Refill Less than 3 Seconds Skin: No rashes, No breakdown Musculoskeletal: No Tenderness to Palpation of Joints or Extremities Neurological: Cranial nerves II-XII grossly intact Psych/Mental Status: Normal Affect, Appropriate, Alert and oriented to time, place, person, mood and affect Current Medications Hydrocodone Bitart/Acetaminophen (Hydrocodone Bitartrate/Apap 5/325 Tablet) 2 tablet PO Q6H PRN PRN PRN Reason: Pain Score 6-10 Last Admin: 04/10/20 10:31 Dose: 2 tablet Documented by: Diazepam (Diazepam 5 Mg Tablet) 5 mg PO Q4H PRN PRN PRN Reason: Muscle Spasms Last Admin: 04/10/20 12:56 Dose: 5 mg Documented by: Morphine Sulfate (Morphine 4 Mg/Ml Syringe) 2 - 4 mg IV Q2H PRN PRN PRN Reason: Pain Score 6-10 Last Admin: 04/09/20 09:05 Dose: 4 mg Documented by: Morphine Sulfate (Morphine 2 Mg/Ml Syringe) 2 - 4 mg IV Q2H PRN PRN PRN Reason: Pain Score 6-10 Last Admin: 04/10/20 06:24 Dose: 4 mg Documented by: Ondansetron HCl (Ondansetron 4 Mg/2 Ml Vial) 4 mg IV Q8H PRN PRN PRN Reason: NAUSEA Senna/Docusate Sodium (Senna/Docusate Sodium 1 Tablet) 2 tablet PO DAILY PRN PRN PRN Reason: CONSTIPATION Sodium Chloride (0.9% Nacl Peripheral Flush Adult/Peds) 5 - 15 ml IV UD PRN PRN Reason: SALINE FLUSH Last Admin: 04/10/20 06:25 Dose: 10 ml Documented by: STROKE Vital Signs/Narrative: Vital Signs Temp Pulse Resp BP Pulse Ox 04/10/20 12:46 98.9 F 73 18 138/90 H 97 Medical Necessity - Tobacco Use Smoking Status: Never smoker Tobacco Use: Non-smoker Assessment/Plan All Active Problems (Last Reviewed 04/08/20 @ 06:[address] Hasmukh Alvarez MD) DDD (degenerative disc disease) (Acute) 1. 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 Postop from lumbar interbody fusion. Ongoing new left-sided radiculopathy. CT shows left lateral disc spacer which is left of midline, moderate to severe neural foraminal narrowing. Mild central stenosis, mild to moderate right neural foraminal narrowing. Postop changes including free fluid in the pelvis, fluid in the retroperitoneum. She has been placed on Decadron per Dr. La. -The patient states that her initial spinal issues came on with no inciting event, denies any initial trauma. -minimal relief with Decadron -patient going for laminectomy tomorrow AM. -encouraged incentive spirometer. -check AM labs. covid neg, hepatitis neg, HIV neg. DVT ppx: contraindicated 2/2 above Thank you for the opportunity to participate in the care of this patient. This patient was seen by Robel Devine PA-C under the supervision of Doctor Kaycee <Cindy Benoit - Last Filed: 04/10/20 17:00> Vitals/I&O's: Vital Signs Temp Pulse Resp BP Pulse Ox 98.9 F 73 18 138/90 H 97 04/10/20 12:46 04/10/20 12:46 04/10/20 12:46 04/10/20 12:46 04/10/20 12:46 Oxygen Flow Rate (L/min) 6 Oxygen Delivery Method Room Air Weight: 134 lb 0.657 oz Body Mass Index (BMI) 23.7 Intake and Output for Last 24 Hours 04/09/20 04/09/20 04/10/20 00:59 23:59 23:59 Intake Total 1040 / 1040 Output Total 1200 / 1200 Balance -160 / -160 Current Medications Hydrocodone Bitart/Acetaminophen (Hydrocodone Bitartrate/Apap 5/325 Tablet) 2 tablet PO Q6H PRN PRN PRN Reason: Pain Score 6-10 Last Admin: 04/10/20 10:31 Dose: 2 tablet Documented by: Diazepam (Diazepam 5 Mg Tablet) 5 mg PO Q4H PRN PRN PRN Reason: Muscle Spasms Last Admin: 04/10/20 12:56 Dose: 5 mg Documented by: Morphine Sulfate (Morphine 4 Mg/Ml Syringe) 2 - 4 mg IV Q2H PRN PRN PRN Reason: Pain Score 6-10 Last Admin: 04/09/20 09:05 Dose: 4 mg Documented by: Morphine Sulfate (Morphine 2 Mg/Ml Syringe) 2 - 4 mg IV Q2H PRN PRN PRN Reason: Pain Score 6-10 Last Admin: 04/10/20 15:06 Dose: 2 mg Documented by: Ondansetron HCl (Ondansetron 4 Mg/2 Ml Vial) 4 mg IV Q8H PRN PRN PRN Reason: NAUSEA Senna/Docusate Sodium (Senna/Docusate Sodium 1 Tablet) 2 tablet PO DAILY PRN PRN PRN Reason: CONSTIPATION Sodium Chloride (0.9% Nacl Peripheral Flush Adult/Peds) 5 - 15 ml IV UD PRN PRN Reason: SALINE FLUSH Last Admin: 04/10/20 14:30 Dose: 10 ml Documented by: Assessment/Plan Patient seen by Robel Devine PA-C under my supervision. Patient seen and examined. She complains of back pain especially with movement. Review of symptoms otherwise negative. She is for repeat surgery tomorrow. O/E: Vital Signs Temp Pulse Resp BP Pulse Ox 98.9 F 73 18 138/90 H 97 04/10/20 12:46 04/10/20 12:46 04/10/20 12:46 04/10/20 12:46 04/10/20 12:46 General: Alert, Oriented x3, Cooperative HEENT: Atraumatic, PERRLA, EOMI, Normocephalic Neck: Supple, No JVD, Negative Carotid Bruits Lungs: Clear to auscultation, Normal air movement Cardiovascular: Regular rate, No murmurs Abdomen: Bowel Sounds Present, Soft, Non Tender Extremities: No edema, Capillary Refill Less than 3 Seconds Skin: No rashes, No breakdown Musculoskeletal: No Tenderness to Palpation of Joints or Extremities, Neurological: Cranial nerves II-XII grossly intact Psych/Mental Status: Normal Affect, Appropriate, Alert and oriented to time, place, person, mood and affect Plan is to continue Decadron. CT showed left lateral disc spacer which is left of midline with moderate to severe neuroforaminal narrowing and mild to moderate right neural foraminal narrowing she also had fluid in the pelvis and retroperitoneum. She is for laminectomy tomorrow morning. On SCDs for DVT prophylaxis. Rest as per KARI Giraldo C's notes which I reviewed and endorsed. Inpatient E&M: [id number] Subs Hosp L2
[2020-04-10 17:15] VITALS: O2SAT 97
[2020-04-10 20:00] VITALS: BP 145/88; PULSE 84; RESP 16; TEMP 36.9; O2SAT 100
[2020-04-11] VITALS (12 sets, daily range): BP systolic 120–147; BP diastolic 75–103; PULSE 70–96; RESP 14–18; TEMP 36.9–37.3; O2SAT 96–99; BMI 23.0
[2020-04-11] MEDS: HYDROcodone Bitartrate/Apap 5/325 Tablet PO (00:22)
[2020-04-11 05:55] LABS: Absolute Lymphocyte Count 2.86 X10^3/uL (0.83-4.51); Absolute Neutrophil Count 3.2 X10^3/uL (2.0-7.7); Basophil# 0.02 X10^3/uL; Basophil% 0.3 % (0-1); Eosinophil# 0.14 X10^3/uL; Eosinophils% 2.1 % (0-5); Hematocrit 37.6 % (37-47); Hemoglobin 12.6 g/dL (12.0-15.0); Lymphocyte # 2.86 X10^3/ul (4.0); Lymphocyte % 42.8 % (19-41); Mean Corp Hgb Conc 33.5 g/dL (32-36); Mean Corpuscular Hgb 30.2 pg (27.0-32.0); Mean Corpuscular Volume 90.2 fL (81-99); Mean Platelet Vol. 9.6 fl (6.2-12.0); Monocyte# 0.44 X10^3/uL; Monocyte% 6.6 % (0-10); NRBC Flagged by Analyzer 0 % (0-5); Neutrophil # 3.21 X10^3/uL (2.7-7.7); Neutrophil % 47.9 % (47-70); Platelet Count 295 K/mm3 (150-450); RBC Distribution Width CV 11.8 % (11.6-14.6); RBC Distribution Width SD 38.5 fl (35.1-43.9); Red Blood Count 4.17 M/mm3 (4.2-5.4); White Blood Count 6.7 K/mm3 (4.4-11.0)
[2020-04-11] MEDS: 0.9% NaCl Peripheral Flush Adult/Peds IV ×4 (05:57→19:59)
[2020-04-11 06:22] LABS: Anion Gap 5 (5-15); BUN 7 mg/dL (7-18); BUN/Creat Ratio 10.3 RATIO (10-20); Calcium,Total 8.3 mg/dL (8.5-10.1); Chloride 104 mmol/L (98-107); Creatinine, Serum 0.68 mg/dL (0.55-1.02); EST Glomerular Filtration Rate 100 mL/min (>60); Est Glom Filt Rate - Afr Amer 121 mL/min (>60); Estimated Creatinine Clearance 88.24 ml/min; Glucose 87 mg/dL (74-106); Sodium Level 139 mmol/L (136-145)
[2020-04-11] MEDS: Lactated Ringers 1,000 ML 100 ML IV ×3 (06:55→18:44)
[2020-04-11] MEDS: THROMBIN (RECOMBINANT) 20,000 UNIT VIAL 20000 UNIT TOPICAL (07:30)
--- NOTE | 2020-04-11 07:30 | RAD_ITS ---
STUDY: X-RAY - LUMBAR SPINE REASON FOR EXAM: Female, 44 years old. LAMINECTOMY L5-S1, INTERNAL FIXATION FUSION . TECHNIQUE: 2 intraoperative view(s) of the lumbar spine were obtained. Fluoroscopy utilized for 0 minutes 4.8 seconds. COMPARISON: CT April 09, 2020 FINDINGS: Intraoperative fluoroscopy utilized during surgery of the lower lumbar spine. RAD/Lumbar Spine 2 or 3 Views IMPRESSION: Intraoperative fluoroscopy. Electronically Signed: Bakari Alvarado MD at 17:09 EST , Service support ,
[2020-04-11] MEDS: dexAMETHasone 4 MG/ML Vial 8 MG IV (07:32)
[2020-04-11] MEDS: Cefazolin 2 GM in 0.9% Normal Saline 100 ML IV (07:43)
--- NOTE | 2020-04-11 12:31 | PCM.OPRPT ---
Report of Operation Date of Procedure: 04/11/20 Description of Surgical Findings:: Preoperative diagnosis: Postoperative left leg S1 and L5 radiculopathy Postoperative diagnoses: Same Procedure: Repeat lumbar laminectomy L5-S1 left #2 the lateral decompression with removal of facet joint L5-S1 on the left 3 movement of cage #4 insertion of new hardware Surgeon: Dr. La Shellfish Bed Worker was Colt from surgery Anesthesia: [facility] Estimated blood loss was 100 cc Drains: Hemovac Complications: None Patient was taken to the OR where she was placed under general endotracheal anesthesia she was then placed in the prone position on the Gabriel frame on the Hernandez table. For appropriate positioning to care to protect her bony prominences or breasts her ulnar nerves of both elbows of brachial plexus or facial features clips were then removed and the back was prepped and draped in standard fashion. The incision along its standard about half an inch in either direction. Open the lumbar fascia mostly by releasing the deep sutures by removing them. I then exposed the old laminectomy site and released the scar off of the top of the laminectomy of L5 on the left. This all laminectomy was from a previous surgery done elsewhere. I then began removal of the entire hemilamina lamina on the left side so that I could go all the way up to the L5 nerve which I did then identify the nerve and continued removing bone with the 45 degree Kerrison's note that it was already fused in the front so I do not have to worry about instability I then followed the nerve root out into its foramen. Note that the implant was identified as it was too far left and a bit posterior and it was compressing the L5 nerve root it was identified the soft tissues around it cleared and using a tamp I tamped it deeper into the spine the disc space take the pressure off the L5 nerve. In addition performed a medial papillectomy to make the curve around the pedicle shorter for the nerve which was of course swollen. I then slowly released the adhesions off the underside of the S1 nerve which I had also exposed to of course. Once I was able to retract it medialward I cut a hole and the remaining annulus and the disc protrusion was removed. This completely decompressed the S1 nerve root also. Noted prior to this of course remove the axial internal fixation device to make room for this. We thoroughly irrigated every 10 to 15 minutes in the course of the case repeatedly to prevent infection. Once the large laminectomy was finished bleeders were controlled with bipolar cautery and thrombin-soaked Gelfoam until we had excellent hemostasis. I then placed a amnionic graft over the large laminectomy site and placed Gelfoam over the top of that. Then applied a new 40 mm axial device locked in place and activated the locking mechanisms. The medium Hemovac drain was then inserted. I then closed the lumbar fascia using [id number] suture with #1 Vicryl. The subcutaneous tissues were then closed with a 2-0 Vicryl in interrupted fashion and the skin was approximated using skin clips. The patient was then recovered in the OR she was moved to her hospital bed and taken to recovery in satisfactory condition.
--- NOTE | 2020-04-11 14:48 | PN_ITS ---
<Robel Devine - Last Filed: 04/11/20 14:48> Patient Problems: Active and Suspected Problems (Last Reviewed 04/08/20 @ 06:[address] Hasmukh Alvarez MD) DDD (degenerative disc disease) (Acute) Reason for Visit: left radiculopathy Subjective: pt seen post op. pt states no improvement in left radicular complaints vs yesterday. Since surgery no SOB, cough, fever, chills, nausea. Vitals/I&O's: Vital Signs Temp Pulse Resp BP Pulse Ox 98.6 F 81 14 142/90 H 96 04/11/20 13:37 04/11/20 13:37 04/11/20 13:37 04/11/20 13:37 04/11/20 13:37 Oxygen Flow Rate (L/min) 6 Oxygen Delivery Method Room Air Weight: 130 lb Body Mass Index (BMI) 23.0 Intake and Output for Last 24 Hours 04/09/20 04/10/20 04/11/20 23:59 23:59 23:59 Intake Total 1940 / 1940 1110 / 1110 Output Total 2850 / 2850 1650 / 1650 Balance -910 / -910 -540 / -540 General: Alert, Oriented x3, Cooperative HEENT: Atraumatic, PERRLA, EOMI, Normocephalic Neck: Supple, No JVD, Negative Carotid Bruits Lungs: Clear to auscultation, Normal air movement Cardiovascular: Regular rate, No murmurs Abdomen: Bowel Sounds Present, Soft, Non Tender Extremities: No edema, Capillary Refill Less than 3 Seconds Skin: No rashes, No breakdown Musculoskeletal: No Tenderness to Palpation of Joints or Extremities Neurological: Cranial nerves II-XII grossly intact Psych/Mental Status: Normal Affect, Appropriate, Alert and oriented to time, place, person, mood and affect Laboratory Results 04/11/20 05:40: WBC 6.7, RBC 4.17 L, Hgb 12.6, Hct 37.6, MCV 90.2, MCH 30.2, MCHC 33.5, RDW Std Deviation 38.5, RDW Coeff of Rigo 11.8, Plt Count 295, MPV 9.6, Immature Gran % (Auto) 0.300, Neut % (Auto) 47.9, Lymph % (Auto) 42.8 H, Coke % (Auto) 6.6, Eos % (Auto) 2.1, Baso % (Auto) 0.3, Absolute Neuts (auto) 3.2, Absolute Lymphs (auto) 2.86, Nucleated RBC % 0 04/11/20 05:40: Sodium 139, Potassium 4.0, Chloride 104, Carbon Dioxide 30.0, Anion Gap 5, BUN 7, Creatinine 0.68, Estim Creat Clear Calc 88.24, Est GFR (MDRD) Af Amer 121, Est GFR (MDRD) Non-Af 100, BUN/Creatinine Ratio 10.3, Gluco se 87, Calcium 8.3 L Current Medications Hydrocodone Bitart/Acetaminophen (Hydrocodone Bitartrate/Apap 5/325 Tablet) 2 tablet PO Q6H PRN PRN PRN Reason: Pain Score 6-10 Last Admin: 04/11/20 00:22 Dose: 2 tablet Documented by: Dexamethasone Sodium Phosphate (Dexamethasone 4 Mg/Ml Vial) 4 mg IV Q6H [facility] Stop: 04/12/20 09:01 Diazepam (Diazepam 5 Mg Tablet) 5 mg PO Q4H PRN PRN PRN Reason: Muscle Spasms Last Admin: 04/10/20 22:49 Dose: 5 mg Documented by: Enteral Nutritional Formula (Ensure Surgery 237 Ml Liquid) 237 ml PO TIDCM [facility] Famotidine (Famotidine 20 Mg Tablet) 20 mg PO BID [facility] Lactated Ringer's () 1,000 mls @ 100 mls/hr IV .Q10H [facility] Last Admin: 04/11/20 12:25 Dose: 100 mls/hr Documented by: Cefazolin Sodium () 1 gm in 50 mls @ 100 mls/hr IV Q8H [facility] Stop: 04/12/20 00:14 Morphine Sulfate (Morphine 4 Mg/Ml Syringe) 2 - 4 mg IV Q2H PRN PRN PRN Reason: Pain Score 6-10 Last Admin: 04/09/20 09:05 Dose: 4 mg Documented by: Ondansetron HCl (Ondansetron 4 Mg/2 Ml Vial) 4 mg IV Q8H PRN PRN PRN Reason: NAUSEA Oxycodone HCl (Oxycodone 5 Mg Tablet) 2.5 - 5 mg PO Q4H PRN PRN PRN Reason: Pain Score 6-10 Senna/Docusate Sodium (Senna/Docusate Sodium 1 Tablet) 2 tablet PO DAILY PRN PRN PRN Reason: CONSTIPATION Sodium Chloride (0.9% Nacl Peripheral Flush Adult/Peds) 5 - 15 ml IV UD PRN PRN Reason: SALINE FLUSH Last Admin: 04/11/20 05:57 Dose: 10 ml Documented by: STROKE Vital Signs/Narrative: Vital Signs Temp Pulse Resp BP Pulse Ox 04/11/20 13:37 98.6 F 80 14 142/90 H 96 04/11/20 13:01 98.6 F 78 18 140/95 H 98 04/11/20 12:45 77 18 138/90 H 98 04/11/20 12:30 70 16 147/93 H 99 04/11/20 12:15 74 16 134/103 H 97 04/11/20 12:09 98.8 F 91 16 126/97 H 98 Medical Necessity - Tobacco Use Smoking Status: Never smoker Tobacco Use: Non-smoker Assessment/Plan All Active Problems (Last Reviewed 04/08/20 @ 06:[address] Hasmukh Alvarez MD) DDD (degenerative disc disease) (Acute) 1. 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 Postop from lumbar interbody fusion. Ongoing new left-sided radiculopathy. CT shows left lateral disc spacer which is left of midline, moderate to severe neural foraminal narrowing. Mild central stenosis, mild to moderate right neural foraminal narrowing. Postop changes including free fluid in the pelvis, fluid in the retroperitoneum. She has been placed on Decadron per Dr. La. -The patient states that her initial spinal issues came on with no inciting event, denies any initial trauma. -minimal relief with Decadron. -encouraged incentive spirometer. -check AM labs. -covid neg, hepatitis neg, HIV neg. -Today pt underwent repeat L5-S1 lumbar laminectomy. DVT ppx: contraindicated 2/2 above Thank you for the opportunity to participate in the care of this patient. This patient was seen by Robel Devine PA-C under the supervision of Doctor Benoit <Cindy Benoit - Last Filed: 04/11/20 15:56> Vitals/I&O's: Vital Signs Temp Pulse Resp BP Pulse Ox 98.6 F 81 14 142/90 H 96 04/11/20 13:37 04/11/20 13:37 04/11/20 13:37 04/11/20 13:37 04/11/20 13:37 Oxygen Flow Rate (L/min) 6 Oxygen Delivery Method Room Air Weight: 130 lb Body Mass Index (BMI) 23.0 Intake and Output for Last 24 Hours 04/09/20 04/10/20 04/11/20 23:59 23:59 23:59 Intake Total 1940 / 1940 1110 / 1110 Output Total 2850 / 2850 1650 / 1650 Balance -910 / -910 -540 / -540 Laboratory Results 04/11/20 05:40: WBC 6.7, RBC 4.17 L, Hgb 12.6, Hct 37.6, MCV 90.2, MCH 30.2, MCHC 33.5, RDW Std Deviation 38.5, RDW Coeff of Rigo 11.8, Plt Count 295, MPV 9.6 , Immature Gran % (Auto) 0.300, Neut % (Auto) 47.9, Lymph % (Auto) 42.8 H, Coke % (Auto) 6.6, Eos % (Auto) 2.1, Baso % (Auto) 0.3, Absolute Neuts (auto) 3.2, Absolute Lymphs (auto) 2.86, Nucleated RBC % 0 04/11/20 05:40: Sodium 139, Potassium 4.0, Chloride 104, Carbon Dioxide 30.0, Anion Gap 5, BUN 7, Creatinine 0.68, Estim Creat Clear Calc 88.24, Est GFR (MDRD) Af Amer 121, Est GFR (MDRD) Non-Af 100, BUN/Creatinine Ratio 10.3, Glucose 87, Calcium 8.3 L Current Medications Hydrocodone Bitart/Acetaminophen (Hydrocodone Bitartrate/Apap 5/325 Tablet) 2 tablet PO Q6H PRN PRN PRN Reason: Pain Score 6-10 Last Admin: 04/11/20 00:22 Dose: 2 tablet Documented by: Dexamethasone Sodium Phosphate (Dexamethasone 4 Mg/Ml Vial) 4 mg IV Q6H [facility] Stop: 04/12/20 09:01 Last Admin: 04/11/20 15:00 Dose: 4 mg Documented by: Diazepam (Diazepam 5 Mg Tablet) 5 mg PO Q4H PRN PRN PRN Reason: Muscle Spasms Last Admin: 04/10/20 22:49 Dose: 5 mg Documented by: Enteral Nutritional Formula (Ensure Surgery 237 Ml Liquid) 237 ml PO TIDCM [facility] Famotidine (Famotidine 20 Mg Tablet) 20 mg PO BID [facility] Lactated Ringer's () 1,000 mls @ 100 mls/hr IV .Q10H [facility] Last Admin: 04/11/20 12:25 Dose: 100 mls/hr Documented by: Cefazolin Sodium () 1 gm in 50 mls @ 100 mls/hr IV Q8H [facility] Stop: 04/12/20 00:14 Morphine Sulfate (Morphine 4 Mg/Ml Syringe) 2 - 4 mg IV Q2H PRN PRN PRN Reason: Pain Score 6-10 Last Admin: 04/09/20 09:05 Dose: 4 mg Documented by: Ondansetron HCl (Ondansetron 4 Mg/2 Ml Vial) 4 mg IV Q8H PRN PRN PRN Reason: NAUSEA Oxycodone HCl (Oxycodone 5 Mg Tablet) 2.5 - 5 mg PO Q4H PRN PRN PRN Reason: Pain Score 6-10 Senna/Docusate Sodium (Senna/Docusate Sodium 1 Tablet) 2 tablet PO DAILY PRN PRN PRN Reason: CONSTIPATION Sodium Chloride (0.9% Nacl Peripheral Flush Adult/Peds) 5 - 15 ml IV UD PRN PRN Reason: SALINE FLUSH Last Admin: 04/11/20 15:00 Dose: 10 ml Documented by: STROKE Vital Signs/Narrative: Vital Signs Temp Pulse Resp BP Pulse Ox 04/11/20 13:37 98.6 F 80 14 142/90 H 96 04/11/20 13:01 98.6 F 78 18 140/95 H 98 04/11/20 12:45 77 18 138/90 H 98 04/11/20 12:30 70 16 147/93 H 99 04/11/20 12:15 74 16 134/103 H 97 04/11/20 12:09 98.8 F 91 16 126/97 H 98 Assessment/Plan Patient seen by Robel Devine PA-C under my supervision Patient seen and examined. She still complains of pain with movement. She had repeat lumbar laminectomy of L5-S1 today. Today's postop day 1. She remains on Decadron. Review of systems otherwise negative. O/E: Vital Signs Temp Pulse Resp BP Pulse Ox 98.7 F 88 16 131/90 H 96 04/11/20 15:26 04/11/20 15:26 04/11/20 15:26 04/11/20 15:26 04/11/20 15:26 General: Alert, Oriented x3, Cooperative HEENT: Atraumatic, PERRLA, EOMI, Normocephalic Neck: Supple, No JVD, Negative Carotid Bruits Lungs: Clear to auscultation, Normal air movement Cardiovascular: Regular rate, No murmurs Abdomen: Bowel Sounds Present, Soft, Non Tender Extremities: No edema, Capillary Refill Less than 3 Seconds Skin: No rashes, No breakdown Musculoskeletal: No Tenderness to Palpation of Joints or Extremities Neurological: Cranial nerves II-XII grossly intact Psych/Mental Status: Normal Affect, Appropriate, Alert and oriented to time, place, person, mood and affect Plan is to continue with Decadron. PT OT on board. Fall precautions. Spinal surgery on board. Continue SCDs for DVT prophylaxis Rest as per Robel Devine PA-C's note, which I have reviewed and endorsed. Inpatient E&M: 34350 Subs Hosp L2
[2020-04-11] MEDS: dexAMETHasone 4 MG/ML Vial IV ×2 (15:00→19:59)
[2020-04-11] MEDS: Cefazolin 1 GM/50 ML BAG IV ×2 (15:34→23:06)
[2020-04-11] MEDS: Morphine 4 MG/ML Syringe IV (17:28)
[2020-04-11] MEDS: Senna/Docusate Sodium 1 Tablet 2 TABLET PO (18:41)
[2020-04-11] MEDS: diazePAM 5 MG Tablet PO (18:41)
[2020-04-11] MEDS: oxyCODONE 5 MG Tablet PO ×2 (19:11→23:12)
[2020-04-11] MEDS: Famotidine 20 MG Tablet PO (23:05)
[2020-04-12 02:40] VITALS: BP 127/81; PULSE 80; RESP 18; TEMP 37.1; O2SAT 98
[2020-04-12] MEDS: Lactated Ringers 1,000 ML 100 ML IV ×2 (02:48→12:14)
[2020-04-12] MEDS: 0.9% NaCl Peripheral Flush Adult/Peds IV (02:48)
[2020-04-12] MEDS: dexAMETHasone 4 MG/ML Vial IV ×2 (02:48→08:47)
[2020-04-12] MEDS: oxyCODONE 5 MG Tablet PO (07:24)
[2020-04-12 08:08] VITALS: O2SAT 96
[2020-04-12 08:34] VITALS: BP 138/98; PULSE 91; RESP 16; TEMP 36.9; O2SAT 98
[2020-04-12] MEDS: Famotidine 20 MG Tablet PO ×2 (08:47→22:47)
[2020-04-12] MEDS: diazePAM 5 MG Tablet PO ×3 (08:51→22:47)
--- NOTE | 2020-04-12 13:40 | PCM.PN.HOSP ---
<Robel Dveine - Last Filed: 04/12/20 13:40> Patient Problems: Active and Suspected Problems (Last Reviewed 04/08/20 @ 06:[address] Hasmukh Alvarez MD) DDD (degenerative disc disease) (Acute) Reason for Visit: Left-sided radiculopathy Subjective: Patient up in chair at bedside, sitting in such ways to relieve pressure on the left side of her buttocks, stating that this is helping to relieve her pain. She states overall she is doing much better than yesterday as far as her pain, muscle spasms, paresthesias, and activity ability. She has been able to get up and walk. Since surgery she has had no shortness of breath, cough, nausea, vomiting, diarrhea, fevers or chills. Vitals/I&O's: Vital Signs Temp Pulse Resp BP Pulse Ox 98.4 F 91 16 138/98 H 98 04/12/20 08:34 04/12/20 08:34 04/12/20 08:34 04/12/20 08:34 04/12/20 08:34 Oxygen Flow Rate (L/min) 6 Oxygen Delivery Method Room Air Weight: 130 lb Body Mass Index (BMI) 23.0 Intake and Output for Last 24 Hours 04/10/20 04/11/20 04/12/20 23:59 23:59 23:59 Intake Total 1940 / 1940 2490 / 2490 2750.00 / 2750.00 Output Total 2850 / 2850 4052 / 4052 1625 / 1625 Balance -910 / -910 -1562 / -1562 1125.00 / 1125.00 General: Alert, Oriented x3, Cooperative HEENT: Atraumatic, PERRLA, EOMI, Normocephalic Neck: Supple, No JVD, Negative Carotid Bruits Lungs: Clear to auscultation, Normal air movement Cardiovascular: Regular rate, No murmurs Abdomen: Bowel Sounds Present, Soft, Non Tender Extremities: No edema, Capillary Refill Less than 3 Seconds Skin: No rashes, No breakdown Musculoskeletal: No Tenderness to Palpation of Joints or Extremities Neurological: Cranial nerves II-XII grossly intact Psych/Mental Status: Normal Affect, Appropriate, Alert and oriented to time, place, person, mood and affect Current Medications Hydrocodone Bitart/Acetaminophen (Hydrocodone Bitartrate/Apap 5/325 Tablet) 2 tablet PO Q6H PRN PRN PRN Reason: Pain Score 6-10 Last Admin: 04/11/20 00:22 Dose: 2 tablet Documented by: Diazepam (Diazepam 5 Mg Tablet) 5 mg PO Q4H PRN PRN PRN Reason: Muscle Spasms Last Admin: 04/12/20 08:51 Dose: 5 mg Documented by: Enteral Nutritional Formula (Ensure Surgery 237 Ml Liquid) 237 ml PO TIDCM [facility] Last Admin: 04/12/20 10:26 Dose: Not Given Documented by: Famotidine (Famotidine 20 Mg Tablet) 20 mg PO BID [facility] Last Admin: 04/12/20 08:47 Dose: 20 mg Documented by: Lactated Ringer's () 1,000 mls @ 100 mls/hr IV .Q10H [facility] Last Admin: 04/12/20 12:14 Dose: 100 mls/hr Documented by: Morphine Sulfate (Morphine 4 Mg/Ml Syringe) 2 - 4 mg IV Q2H PRN PRN PRN Reason: Pain Score 6-10 Last Admin: 04/11/20 17:28 Dose: 2 mg Documented by: Ondansetron HCl (Ondansetron 4 Mg/2 Ml Vial) 4 mg IV Q8H PRN PRN PRN Reason: NAUSEA Oxycodone HCl (Oxycodone 5 Mg Tablet) 2.5 - 5 mg PO Q4H PRN PRN PRN Reason: Pain Score 6-10 Last Admin: 04/12/20 07:24 Dose: 5 mg Documented by: Senna/Docusate Sodium (Senna/Docusate Sodium 1 Tablet) 2 tablet PO DAILY PRN PRN PRN Reason: CONSTIPATION Last Admin: 04/11/20 18:41 Dose: 2 tablet Documented by: Sodium Chloride (0.9% Nacl Peripheral Flush Adult/Peds) 5 - 15 ml IV UD PRN PRN Reason: SALINE FLUSH Last Admin: 04/12/20 02:48 Dose: 10 ml Documented by: Medical Necessity - Tobacco Use Smoking Status: Never smoker Tobacco Use: Non-smoker Assessment/Plan All Active Problems (Last Reviewed 04/08/20 @ 06:[address] Hasmukh Alvarez MD) DDD (degenerative disc disease) (Acute) 1. 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 Overall improvement in all symptoms. Tolerating activity better today. - pt underwent repeat L5-S1 lumbar laminectomy. POD#1. -no apparent post op complications at this time. Thank you for the opportunity to participate in the care of this patient. This patient was seen by Robel Devine PA-C under the supervision of Doctor Kaycee <Cindy Benoit - Last Filed: 04/12/20 15:19> Vitals/I&O's: Vital Signs Temp Pulse Resp BP Pulse Ox 98.4 F 91 16 138/98 H 98 04/12/20 08:34 04/12/20 08:34 04/12/20 08:34 04/12/20 08:34 04/12/20 08:34 Oxygen Flow Rate (L/min) 6 Oxygen Delivery Method Room Air Weight: 130 lb Body Mass Index (BMI) 23.0 Intake and Output for Last 24 Hours 04/10/20 04/11/20 04/12/20 23:59 23:59 23:59 Intake Total 1940 / 1940 2490 / 2490 2750.00 / 2750.00 Output Total 2850 / 2850 4052 / 4052 1625 / 1625 Balance -910 / -910 -1562 / -1562 1125.00 / 1125.00 Current Medications Hydrocodone Bitart/Acetaminophen (Hydrocodone Bitartrate/Apap 5/325 Tablet) 2 tablet PO Q6H PRN PRN PRN Reason: Pain Score 6-10 Last Admin: 04/11/20 00:22 Dose: 2 tablet Documented by: Diazepam (Diazepam 5 Mg Tablet) 5 mg PO Q4H PRN PRN PRN Reason: Muscle Spasms Last Admin: 04/12/20 08:51 Dose: 5 mg Documented by: Enteral Nutritional Formula (Ensure Surgery 237 Ml Liquid) 237 ml PO TIDCM [facility] Last Admin: 04/12/20 10:26 Dose: Not Given Documented by: Famotidine (Famotidine 20 Mg Tablet) 20 mg PO BID [facility] Last Admin: 04/12/20 08:47 Dose: 20 mg Documented by: Lactated Ringer's () 1,000 mls @ 100 mls/hr IV .Q10H [facility] Last Admin: 04/12/20 12:14 Dose: 100 mls/hr Documented by: Morphine Sulfate (Morphine 4 Mg/Ml Syringe) 2 - 4 mg IV Q2H PRN PRN PRN Reason: Pain Score 6-10 Last Admin: 04/11/20 17:28 Dose: 2 mg Documented by: Ondansetron HCl (Ondansetron 4 Mg/2 Ml Vial) 4 mg IV Q8H PRN PRN PRN Reason: NAUSEA Oxycodone HCl (Oxycodone 5 Mg Tablet) 2.5 - 5 mg PO Q4H PRN PRN PRN Reason: Pain Score 6-10 Last Admin: 04/12/20 07:24 Dose: 5 mg Documented by: Senna/Docusate Sodium (Senna/Docusate Sodium 1 Tablet) 2 tablet PO DAILY PRN PRN PRN Reason: CONSTIPATION Last Admin: 04/11/20 18:41 Dose: 2 tablet Documented by: Sodium Chloride (0.9% Nacl Peripheral Flush Adult/Peds) 5 - 15 ml IV UD PRN PRN Reason: SALINE FLUSH Last Admin: 04/12/20 02:48 Dose: 10 ml Documented by: Assessment/Plan Patient seen by Robel Devine PA-C under my supervision Patient seen and examined. She had repeat laminectomy and today is POD 1. Chest pain is much better controlled and she has no other complaints. Review of systems otherwise negative. O/E: Vital Signs Temp Pulse Resp BP Pulse Ox 98.4 F 91 16 138/98 H 98 04/12/20 08:34 04/12/20 08:34 04/12/20 08:34 04/12/20 08:34 04/12/20 08:34 General: Alert, Oriented x3, Cooperative HEENT: Atraumatic, PERRLA, EOMI, Normocephalic Neck: Supple, No JVD, Negative Carotid Bruits Lungs: Clear to auscultation, Normal air movement Cardiovascular: Regular rate, No murmurs Abdomen: Bowel Sounds Present, Soft, Non Tender Extremities: No edema, Capillary Refill Less than 3 Seconds Skin: No rashes, No breakdown Musculoskeletal: No Tenderness to Palpation of Joints or Extremities Neurological: Cranial nerves II-XII grossly intact Psych/Mental Status: Normal Affect, Appropriate, Alert and oriented to time, place, person, mood and affect Plan is to continue PT/OT. Fall precautions. continue decadrone. Continue SCDs for DVT prophylaxis. Rest as per Robel Devine PA-C under my supervision Inpatient E&M: [id number] Subs Hosp L2
[2020-04-12 15:17] VITALS: BP 124/87; PULSE 86; RESP 16; TEMP 36.8; O2SAT 95
--- NOTE | 2020-04-12 16:51 | PCM.PN.BLA ---
Progress Note Renee is seen on rounds. She states that her leg pain is definitely better. She has been up a couple times and she has been sitting up also. Has significant numbness in her lower leg and foot but the pain is definitely better. Dates that she feels a tingling in her foot. Her anterior tib strength is definitely much better than it was as is her peroneal strength. Her EHL strength however is still poor. Her dressing on her abdomen is clean and dry. Tomorrow we will start ambulating her with physical therapy. In addition we are removing the catheter tonight as she is probably able to urinate on her own. Hemovac at 25 cc out so we will leave it in 1 more day and remove it tomorrow along with a dressing change. Her progress is satisfactory. STROKE Vital Signs/Narrative: Vital Signs Temp Pulse Resp BP Pulse Ox 04/12/20 15:17 98.3 F 86 16 124/87 H 95
[2020-04-12] MEDS: Ensure Surgery 237 ML LIQUID PO (18:28)
[2020-04-12 20:56] VITALS: BP 128/85; PULSE 105; RESP 16; TEMP 36.9; O2SAT 97
[2020-04-13] VITALS (8 sets, daily range): BP systolic 108–134; BP diastolic 74–90; PULSE 92–97; RESP 16–18; TEMP 36.9–37.2; O2SAT 95–100
[2020-04-13] MEDS: diazePAM 5 MG Tablet PO ×2 (02:47→16:27)
--- NOTE | 2020-04-13 09:08 | PCM.PROGNOTE ---
<YandelGhazal CONCRETE TRUCK DRIVER - Last Filed: 04/13/20 09:26> Patient Problems: Active and Suspected Problems (Last Reviewed 04/08/20 @ 06:[address] Hasmukh Alvarez MD) DDD (degenerative disc disease) (Acute) Subjective: Patient seen and examined. Complains of continued left lower extremity [id number] and burning pain. States she is having difficulty getting comfortable. Able to ambulate. Denies other symptoms or complaints. - Physical Exam Vitals/I&O's: Vital Signs Temp Pulse Resp BP Pulse Ox 98.4 F 93 16 114/74 95 04/13/20 02:36 04/13/20 02:36 04/13/20 02:36 04/13/20 02:36 04/13/20 08:22 Oxygen Flow Rate (L/min) 6 Oxygen Delivery Method Room Air Weight: 130 lb Body Mass Index (BMI) 23.0 Intake and Output for Last 24 Hours 04/11/20 04/12/20 04/13/20 23:59 23:59 23:59 Intake Total 2490 / 2490 3601.67 / 4021.67 770 / 770 Output Total 4052 / 4052 2945 / 3145 800 / 800 Balance -1562 / -1562 656.67 / 876.67 -30 / -30 General: Alert, Oriented x3, Cooperative HEENT: Atraumatic, PERRLA, EOMI, Normocephalic Neck: Supple, No JVD, Negative Carotid Bruits Lungs: Clear to auscultation, Normal air movement Cardiovascular: Regular rate, No murmurs Abdomen: Bowel Sounds Present, Soft, Non Tender Extremities: No clubbing, No cyanosis, No edema, Capillary Refill Less than 3 Seconds, - - Left lower extremity radiculopathy Skin: No rashes, No breakdown, - - Postop dressings intact Musculoskeletal: No Tenderness to Palpation of Joints or Extremities Neurological: Cranial nerves II-XII grossly intact, Neuro grossly intact Psych/Mental Status: Normal Affect, Appropriate Current Medications Hydrocodone Bitart/Acetaminophen (Hydrocodone Bitartrate/Apap 5/325 Tablet) 2 tablet PO Q6H PRN PRN PRN Reason: Pain Score 6-10 Last Admin: 04/11/20 00:22 Dose: 2 tablet Documented by: Diazepam (Diazepam 5 Mg Tablet) 5 mg PO Q4H PRN PRN PRN Reason: Muscle Spasms Last Admin: 04/13/20 02:47 Dose: 5 mg Documented by: Enteral Nutritional Formula (Ensure Surgery 237 Ml Liquid) 237 ml PO TIDCM [facility] Last Admin: 04/12/20 18:28 Dose: 237 ml Documented by: Famotidine (Famotidine 20 Mg Tablet) 20 mg PO BID [facility] Last Admin: 04/12/20 22:47 Dose: 20 mg Documented by: Morphine Sulfate (Morphine 4 Mg/Ml Syringe) 2 - 4 mg IV Q2H PRN PRN PRN Reason: Pain Score 6-10 Last Admin: 04/11/20 17:28 Dose: 2 mg Documented by: Ondansetron HCl (Ondansetron 4 Mg/2 Ml Vial) 4 mg IV Q8H PRN PRN PRN Reason: NAUSEA Oxycodone HCl (Oxycodone 5 Mg Tablet) 2.5 - 5 mg PO Q4H PRN PRN PRN Reason: Pain Score 6-10 Last Admin: 04/12/20 07:24 Dose: 5 mg Documented by: Senna/Docusate Sodium (Senna/Docusate Sodium 1 Tablet) 2 tablet PO DAILY PRN PRN PRN Reason: CONSTIPATION Last Admin: 04/11/20 18:41 Dose: 2 tablet Documented by: Sodium Chloride (0.9% Nacl Peripheral Flush Adult/Peds) 5 - 15 ml IV UD PRN PRN Reason: SALINE FLUSH Last Admin: 04/12/20 02:48 Dose: 10 ml Documented by: Medical Necessity - Tobacco Use Smoking Status: Never smoker Tobacco Use: Non-smoker Assessment/Plan All Active Problems (Last Reviewed 04/08/20 @ 06:[address] Hasmukh Alvarez MD) DDD (degenerative disc disease) (Acute) 1. Repeat lumbar laminectomy L5-S1 secondary to recurrent disc herniation L5-S1 with right-sided S1 radiculopathy 04/07/2020-patient developed postop radiculopathy on the left side and further underwent removal of facet joint L5-S1 on the left with insertion of new hardware 04/11/2020. Dr. La following. PT/OT. As needed pain regimen. As needed Valium for spasms. Will initiate low-dose gabapentin given ongoing radiculopathy and uncontrolled pain. DVT prophylaxis-SCDs This patient was seen by ETIENNE Murphy under the supervision of Dr. Benoit. <Cindy Benoit - Last Filed: 04/13/20 15:07> - Physical Exam Vitals/I&O's: Vital Signs Temp Pulse Resp BP Pulse Ox 98.9 F 97 18 122/85 H 99 04/13/20 13:05 04/13/20 13:05 04/13/20 13:05 04/13/20 13:05 04/13/20 13:05 Oxygen Flow Rate (L/min) 6 Oxygen Delivery Method Room Air Weight: 130 lb Body Mass Index (BMI) 23.0 Intake and Output for Last 24 Hours 04/11/20 04/12/20 04/13/20 23:59 23:59 23:59 Intake Total 2490 / 2490 3601.67 / 4021.67 1670 / 1670 Output Total 4052 / 4052 2945 / 3145 800 / 800 Balance -1562 / -1562 656.67 / 876.67 870 / 870 Current Medications Hydrocodone Bitart/Acetaminophen (Hydrocodone Bitartrate/Apap 5/325 Tablet) 2 tablet PO Q6H PRN PRN PRN Reason: Pain Score 6-10 Last Admin: 04/11/20 00:22 Dose: 2 tablet Documented by: Diazepam (Diazepam 5 Mg Tablet) 5 mg PO Q4H PRN PRN PRN Reason: Muscle Spasms Last Admin: 04/13/20 02:47 Dose: 5 mg Documented by: Enteral Nutritional Formula (Ensure Surgery 237 Ml Liquid) 237 ml PO TIDCM [facility] Last Admin: 04/13/20 10:27 Dose: 237 ml Documented by: Famotidine (Famotidine 20 Mg Tablet) 20 mg PO BID [facility] Last Admin: 04/13/20 10:27 Dose: 20 mg Documented by: Gabapentin (Gabapentin 100 Mg Capsule) 100 mg PO TIDCM [facility] Last Admin: 04/13/20 12:53 Dose: 100 mg Documented by: Morphine Sulfate (Morphine 4 Mg/Ml Syringe) 2 - 4 mg IV Q2H PRN PRN PRN Reason: Pain Score 6-10 Last Admin: 04/11/20 17:28 Dose: 2 mg Documented by: Ondansetron HCl (Ondansetron 4 Mg/2 Ml Vial) 4 mg IV Q8H PRN PRN PRN Reason: NAUSEA Oxycodone HCl (Oxycodone 5 Mg Tablet) 2.5 - 5 mg PO Q4H PRN PRN PRN Reason: Pain Score 6-10 Last Admin: 04/13/20 12:53 Dose: 5 mg Documented by: Senna/Docusate Sodium (Senna/Docusate Sodium 1 Tablet) 2 tablet PO DAILY PRN PRN PRN Reason: CONSTIPATION Last Admin: 04/11/20 18:41 Dose: 2 tablet Documented by: Sodium Chloride (0.9% Nacl Peripheral Flush Adult/Peds) 5 - 15 ml IV UD PRN PRN Reason: SALINE FLUSH Last Admin: 04/12/20 02:48 Dose: 10 ml Documented by: Assessment/Plan Patient seen by Ghazal CLIFTON under my supervision Patient seen and examined. She had repeat laminectomy and today is POD 2. Still complains of [id number] sensation in her lower extremities. O/E: Vital Signs Temp Pulse Resp BP Pulse Ox 98.4 F 91 16 138/98 H 98 04/12/20 08:34 04/12/20 08:34 04/12/20 08:34 04/12/20 08:34 04/12/20 08:34 General: Alert, Oriented x3, Cooperative HEENT: Atraumatic, PERRLA, EOMI, Normocephalic Neck: Supple, No JVD, Negative Carotid Bruits Lungs: Clear to auscultation, Normal air movement Cardiovascular: Regular rate, No murmurs Abdomen: Bowel Sounds Present, Soft, Non Tender Extremities: No edema, Capillary Refill Less than 3 Seconds Skin: No rashes, No breakdown Musculoskeletal: No Tenderness to Palpation of Joints or Extremities Neurological: Cranial nerves II-XII grossly intact Psych/Mental Status: Normal Affect, Appropriate, Alert and oriented to time, place, person, mood and affect Plan is to continue PT/OT. Fall precautions. continue decadrone. Continue SCDs for DVT prophylaxis. Started on low-dose gabapentin. Rest as per Ghazal CLIFTON under my supervision Inpatient E&M: 82572 Subs Hosp L2
[2020-04-13] MEDS: Ensure Surgery 237 ML LIQUID PO ×2 (10:27→16:28)
[2020-04-13] MEDS: Famotidine 20 MG Tablet PO ×2 (10:27→21:44)
[2020-04-13] MEDS: Gabapentin 100 MG Capsule PO ×3 (10:27→16:29)
--- NOTE | 2020-04-13 12:08 | PCM.PN.BLA ---
Progress Note Renee is seen on rounds. Buttocks and thigh and leg feel about like they fell yesterday they are hypersensitive but the pain is much much less than it was prior to this surgery 2 days ago. She has good peroneal strength now on the left side and good anterior tibialis strength also. EHL still very weak. Fortunately her drain was pulled act out by accident this morning but it was ready to come out anyway. Change the dressing the incisions dry and healing well. The anterior dressing is dry. Patient is in good spirits today. Has been up and walked a couple of times with her walker. We will be sending her home with a walker probably tomorrow. Progress is slow but satisfactory. STROKE Vital Signs/Narrative: Vital Signs Temp Pulse Resp BP Pulse Ox 04/13/20 09:10 98.9 F 97 18 134/90 H 98 04/13/20 08:30 98.7 F 96 16 126/85 H 100 04/13/20 08:22 95
[2020-04-13] MEDS: oxyCODONE 5 MG Tablet PO ×2 (12:53→17:58)
[2020-04-14] VITALS (9 sets, daily range): BP systolic 100–126; BP diastolic 73–89; PULSE 79–133; RESP 15–20; TEMP 36.7–36.9; O2SAT 98–100
[2020-04-14] MEDS: oxyCODONE 5 MG Tablet PO (01:54)
[2020-04-14] MEDS: HYDROcodone Bitartrate/Apap 5/325 Tablet PO (07:48)
[2020-04-14] MEDS: Ensure Surgery 237 ML LIQUID PO ×2 (07:48→12:32)
[2020-04-14] MEDS: Famotidine 20 MG Tablet PO (07:49)
[2020-04-14] MEDS: Gabapentin 100 MG Capsule PO ×2 (07:49→12:32)
--- NOTE | 2020-04-14 08:22 | NURSING ---
called to room by Housekeeping stating patient in the chair but states she doesn't feel right. Primary RN notified and Back to room, pt found sitting upright in chair. pt states feels like she's gonna pass out with change in her hearing. states had been up walking in room and talking with housekeeping when suddenly felt very weak and like a blob. Legs elevated and pt reclined in recliner. bp checked 95/68-70-100%Ra. pt states feels better. color to face improved. bp rechecked 103/75-84-100% RA. pt refused to transfer back to the bed. Primary RN remains at bedside.
--- NOTE | 2020-04-14 11:15 | CASEMGMT ---
RN CM updated that patient will need walker at discharge. RN CM in to discuss walker setup and patient would like [employer]. Script received and referral sent to [employer]. RN CM arranged for walker to be delivered to patient's room prior to discharge.
--- NOTE | 2020-04-14 11:16 | PCM.PROGNOTE ---
<YandelGhazal APPLICATION SYSTEMS ADMINISTRATOR - Last Filed: 04/14/20 11:32> Patient Problems: Active and Suspected Problems (Last Reviewed 04/08/20 @ 06:[address] Hasmukh Alvarez MD) DDD (degenerative disc disease) (Acute) Subjective: Patient seen and examined. Reports episode of feeling like she was going to pass out earlier this morning due to severe pain when attempting to sit in chair. She states that episode was positional. Otherwise, she states pain is better than it has been prior. She is hoping to return home as she feels this will improve her comfort. - Physical Exam Vitals/I&O's: Vital Signs Temp Pulse Resp BP Pulse Ox 98.4 F 86 17 119/80 100 04/14/20 08:03 04/14/20 10:27 04/14/20 08:03 04/14/20 08:37 04/14/20 10:27 Oxygen Flow Rate (L/min) 6 Oxygen Delivery Method Room Air Weight: 130 lb Body Mass Index (BMI) 23.0 Intake and Output for Last 24 Hours 04/12/20 04/13/20 04/14/20 23:59 23:59 23:59 Intake Total 3601.67 / 4021.67 2570 / 2570 Output Total 2945 / 3145 800 / 800 Balance 656.67 / 876.67 1770 / 1770 General: Alert, Oriented x3, Cooperative HEENT: Atraumatic, PERRLA, EOMI, Normocephalic Neck: Supple, No JVD, Negative Carotid Bruits Lungs: Clear to auscultation, Normal air movement Cardiovascular: Regular rate, No murmurs Abdomen: Bowel Sounds Present, Soft, Non Tender, Non-Distended Extremities: No edema, Capillary Refill Less than 3 Seconds, - - Left lower extremity radiculopathy, improving Skin: No rashes, No breakdown, - - Postop dressings intact Musculoskeletal: No Tenderness to Palpation of Joints or Extremities Neurological: Cranial nerves II-XII grossly intact, Neuro grossly intact Psych/Mental Status: Normal Affect, Appropriate Current Medications Hydrocodone Bitart/Acetaminophen (Hydrocodone Bitartrate/Apap 5/325 Tablet) 2 tablet PO Q6H PRN PRN PRN Reason: Pain Score 6-10 Last Admin: 04/14/20 07:48 Dose: 2 tablet Documented by: Diazepam (Diazepam 5 Mg Tablet) 5 mg PO Q4H PRN PRN PRN Reason: Muscle Spasms Last Admin: 04/13/20 16:27 Dose: 5 mg Documented by: Enteral Nutritional Formula (Ensure Surgery 237 Ml Liquid) [facility] Last Admin: 04/14/20 07:48 Dose: 237 ml Documented by: Famotidine (Famotidine 20 Mg Tablet) 20 mg PO BID [facility] Last Admin: 04/14/20 07:49 Dose: 20 mg Documented by: Gabapentin (Gabapentin 100 Mg Capsule) 100 mg PO TIDCM [facility] Last Admin: 04/14/20 07:49 Dose: 100 mg Documented by: Morphine Sulfate (Morphine 4 Mg/Ml Syringe) 2 - 4 mg IV Q2H PRN PRN PRN Reason: Pain Score 6-10 Last Admin: 04/11/20 17:28 Dose: 2 mg Documented by: Ondansetron HCl (Ondansetron 4 Mg/2 Ml Vial) 4 mg IV Q8H PRN PRN PRN Reason: NAUSEA Oxycodone HCl (Oxycodone 5 Mg Tablet) 2.5 - 5 mg PO Q4H PRN PRN PRN Reason: Pain Score 6-10 Last Admin: 04/14/20 01:54 Dose: 5 mg Documented by: Senna/Docusate Sodium (Senna/Docusate Sodium 1 Tablet) 2 tablet PO DAILY PRN PRN PRN Reason: CONSTIPATION Last Admin: 04/11/20 18:41 Dose: 2 tablet Documented by: Sodium Chloride (0.9% Nacl Peripheral Flush Adult/Peds) 5 - 15 ml IV UD PRN PRN Reason: SALINE FLUSH Last Admin: 04/12/20 02:48 Dose: 10 ml Documented by: Medical Necessity - Tobacco Use Smoking Status: Never smoker Tobacco Use: Non-smoker Assessment/Plan All Active Problems (Last Reviewed 04/08/20 @ 06:[address] Hasmukh Alvarez MD) DDD (degenerative disc disease) (Acute) 1. Repeat lumbar laminectomy L5-S1 secondary to recurrent disc herniation L5-S1 with right-sided S1 radiculopathy 04/07/2020-patient developed postop radiculopathy on the left side and further underwent removal of facet joint L5-S1 on the left with insertion of new hardware 04/11/2020. Dr. La following. PT/OT. As needed pain regimen. As needed Valium for spasms. Patient initiated on low-dose gabapentin for radiculopathy with improvement in symptoms. From a medical standpoint, patient is stable. Discharge planning per Dr. La. DVT prophylaxis-SCDs This patient was seen by ETIENNE Murphy under the supervision of Dr. Benoit. <Cindy Benoit Anais - Last Filed: 04/14/20 13:48> - Physical Exam Vitals/I&O's: Vital Signs Temp Pulse Resp BP Pulse Ox 98.4 F 99 15 118/82 H 100 04/14/20 12:36 04/14/20 12:40 04/14/20 12:36 04/14/20 12:36 04/14/20 12:36 Oxygen Flow Rate (L/min) 6 Oxygen Delivery Method Room Air Weight: 130 lb Body Mass Index (BMI) 23.0 Intake and Output for Last 24 Hours 04/12/20 04/13/20 04/14/20 23:59 23:59 23:59 Intake Total 3601.67 / 4021.67 2570 / 2570 1000 / 1000 Output Total 2945 / 3145 800 / 800 Balance 656.67 / 876.67 1770 / 1770 1000 / 1000 Current Medications Hydrocodone Bitart/Acetaminophen (Hydrocodone Bitartrate/Apap 5/325 Tablet) 2 tablet PO Q6H PRN PRN PRN Reason: Pain Score 6-10 Last Admin: 04/14/20 07:48 Dose: 2 tablet Documented by: Diazepam (Diazepam 5 Mg Tablet) 5 mg PO Q4H PRN PRN PRN Reason: Muscle Spasms Last Admin: 04/13/20 16:27 Dose: 5 mg Documented by: Enteral Nutritional Formula (Ensure Surgery 237 Ml Liquid) 237 ml PO TIDCM [facility] Last Admin: 04/14/20 12:32 Dose: 237 ml Documented by: Famotidine (Famotidine 20 Mg Tablet) 20 mg PO BID [facility] Last Admin: 04/14/20 07:49 Dose: 20 mg Documented by: Morphine Sulfate (Morphine 4 Mg/Ml Syringe) 2 - 4 mg IV Q2H PRN PRN PRN Reason: Pain Score 6-10 Last Admin: 04/11/20 17:28 Dose: 2 mg Documented by: Ondansetron HCl (Ondansetron 4 Mg/2 Ml Vial) 4 mg IV Q8H PRN PRN PRN Reason: NAUSEA Oxycodone HCl (Oxycodone 5 Mg Tablet) 2.5 - 5 mg PO Q4H PRN PRN PRN Reason: Pain Score 6-10 Last Admin: 04/14/20 01:54 Dose: 5 mg Documented by: Senna/Docusate Sodium (Senna/Docusate Sodium 1 Tablet) 2 tablet PO DAILY PRN PRN PRN Reason: CONSTIPATION Last Admin: 04/11/20 18:41 Dose: 2 tablet Documented by: Sodium Chloride (0.9% Nacl Peripheral Flush Adult/Peds) 5 - 15 ml IV UD PRN PRN Reason: SALINE FLUSH Last Admin: 04/12/20 02:48 Dose: 10 ml Documented by: Assessment/Plan Patient seen by Ghazal Humphries NP-C under my supervision Patient seen and examined. He complains of feeling dizzy with movement today. She was started on low-dose gabapentin yesterday and she states that symptoms started when she took the gabapentin and the oxycodone. At the time of review, dizziness had resolved. She denied rotations, chest pain, nausea vomiting or diarrhea. Review of symptoms otherwise negative. O/E: Vital Signs Temp Pulse Resp BP Pulse Ox 98.4 F 99 15 118/82 H 100 04/14/20 12:36 04/14/20 12:40 04/14/20 12:36 04/14/20 12:36 04/14/20 12:36 General: Alert, Oriented x3, Cooperative HEENT: Atraumatic, PERRLA, EOMI, Normocephalic Neck: Supple, No JVD, Negative Carotid Bruits Lungs: Clear to auscultation, Normal air movement Cardiovascular: Regular rate, No murmurs Abdomen: Bowel Sounds Present, Soft, Non Tender, Non-Distended Extremities: No edema, Capillary Refill Less than 3 Seconds, - - Left lower extremity radiculopathy, improving Skin: No rashes, No breakdown, - - Postop dressings intact Musculoskeletal: No Tenderness to Palpation of Joints or Extremities Neurological: Cranial nerves II-XII grossly intact, Neuro grossly intact Psych/Mental Status: Normal Affect, Appropriate Plan is to stop gabapentin and is likely contributing to her complaints of dizziness and also the onset of dizziness was right after she started gabapentin. Continue on her oxycodone. PT OT on board. Fall precautions. Orthostatics were negative. Encourage liberal oral hydration. I did discuss with patient that I thought it would be beneficial for her to stay 1 more day. However patient is insistent on going home and after discussion with spine surgeon, decision is for her to be discharged home as she has a lot of family support at home. Encouraged to continue oral hydration. Follow-up with PCP and spine surgeon as directed. Rest as per MICHAEL MurphyC's notes which I have reviewed and endorsed. Inpatient E&M: [id number] Subs Hosp L2
--- NOTE | 2020-04-14 13:37 | DCINST_ITS ---
Additional Instructions: Renee has been discharged today. Her discharge instructions including when to shower she is to take the dressing off on Friday and she is to shower on Friday. Ambulate all she wants. Hydrocodone 03/11/2025 is waiting at home. Ate a regular diet at this point. Is to return to my office on on the of this month for which she already has an appointment. To call my office or call me on my cell as she has my cell number as does her and I told her to feel free to call me anytime if she has a question or something does not seem right. Allergies/Adverse Reactions: Allergies No Known Allergies Allergy (Unverified 03/31/20 08:05) Medications to take at Discharge cholecalciferol (vitamin D3) 25 mcg (1,000 unit) capsule 25 mcg PO DAILY 03/06/20 multivitamin 1 tab PO DAILY 03/06/20 norethindrone 1.5 mg-ethinyl estradiol 30 mcg(21)/iron 75 mg(7) tablet 1 tab PO DAILY 03/06/20 Primary Care Physician: Nelson Cerna MD [Primary Care Provider] - Test Results: Test results from this visit will be discussed in further detail at your follow- up appointment, if applicable.
[2020-04-14 13:41] LABS: Hemoglobin 11.8 g/dL (12.0-15.0)
--- NOTE | 2020-04-15 10:55 | PCM.DC.BLA ---
Discharge Summary Date of Admission: 04/07/20 Date of Discharge: 04/14/20 Summary: This patient was admitted on April 07, 2020. The date of admission she underwent a 360 degree fusion at the L5-S1 level with a repeat laminectomy at L5-S1 on the right side for right leg pain. Operatively her right leg pain was indeed gone however she had severe pain in her left buttocks down her left thigh and to the top of her foot in what seemed to be a classic L5 dermatome. She did not have that before the surgery. We tried to calm her pain down with pain medication and IV steroids which did help her pain. April I ordered a CT scan of her lumbar spine. I observed on the CT scan that the titanium cage was put in too far to the left side undoubtedly putting pressure on the left L5 nerve root. On Friday the third I took her back to surgery opened her back incision and did an extensive laminectomy at L5-S1 on the left side. I went for far up enough on the laminectomy to identify the L5 nerve I then followed it all the way out and removed the facet on the left side as it was not necessary as far stability because she had the cage in the front. In this fashion I was able to decompress the nerve. I remove the axial device posteriorly which loosened up the back of the space I was able to tamp cage medial and more anterior take complete pressure off the L5 nerve root. Note that the L5 nerve root was quite swollen. Noted before the surgery she had significant anterior tibialis weakness but not severe and marked EHL weakness. Postoperatively the next morning she did report that her pain was definitely decreased but she still had dysesthesias of the leg. Her anterior tibialis strength however was significantly better. EHL strength was not. On her second postoperative day from the second surgery reported even better relief of her left-sided pain. Addition she was ambulating much better with her walker and some assistance. On Friday the she was doing even better reported more relief of her pain in her leg landing well around the halls of the floor. Note that the day before I change her dressing and removed her drain. Her incision was healing well at that time. During her time in the hospital she was managed by the hospitalist group medically. Friday morning prior to her discharge she had an episode of lightheadedness and felt like she was going to fall when she was up. Nurse Singh was there with her to prevent her from falling. The hospitalist reported that she felt that it was the gabapentin that had been added and in fact was quite confident of that. Thereafter the patient was up again she did fine with no syncopal episodes at all. She wished to go home and I let her do so. In addition both the patient and her have my cell number and told them both to call me anytime or if they have any questions or concerns after she goes home. They promised to do so. At that point in time that is at discharge she had no ileus whatsoever she was passing gas her back did not hurt too bad at all and neither did her abdomen. Her abdominal scar was healing well I removed the dressing. She was given directions regarding her dressing on her back they were to remove it on Friday and on Friday she would be able to shower. They were to leave any dressings off after that and not to put anything on the wound other than soap and water. She was told that she could eat a regular diet. She could ambulate all she wanted and could sit for as long as she could stand. She was not to do any lifting of any significance and would be able to put away the walker as soon as she felt comfortable without it. She had hydrocodone waiting at home for her. It is my habit to prescribe the opioids preop so that they will be waiting for them at home. She was asked to follow-up in my office approximately 10 days after discharge. Patient Problems: Active and Suspected Problems (Last Reviewed 04/08/20 @ 06:[address] Hasmukh Alvarez MD) DDD (degenerative disc disease) (Acute) - Physical Exam Vitals/I&O's: Vital Signs Temp Pulse Resp BP Pulse Ox 98.4 F 97 15 108/75 100 04/14/20 12:36 04/14/20 14:13 04/14/20 12:36 04/14/20 14:13 04/14/20 12:36 Oxygen Flow Rate (L/min) 6 Oxygen Delivery Method Room Air Weight: 130 lb Body Mass Index (BMI) 23.0 Intake and Output for Last 24 Hours 04/13/20 04/14/20 04/15/20 23:59 23:59 23:59 Intake Total 2570 / 2570 1000 / 1000 Output Total 800 / 800 Balance 1770 / 1770 1000 / 1000 Laboratory Results 04/14/20 13:23: Hgb 11.8 L
== END 2020-04-14 14:45 | disposition home or self-care (01) | DRG 460 ==
LOC: ACINP 05:38 → MS3 11:42
PROVIDERS: Anesthesiology; Physician Assistant; Admitting Provider Orthopaedic Surgery; PCP Family Medicine; Referring Provider Orthopaedic Surgery; Visit Provider Student in an Organized Health Care Education/Training Program
PROC: 0SG30A0 Fusion of Lumbosacral Joint with Interbody Fusion Device, Anterior Approach, Anterior Column, Open Approach (ICD-10-PCS; principal; 2020-04-07 07:00)
PROC: 01NR0ZZ Release Sacral Nerve, Open Approach (ICD-10-PCS; CPT 63030; principal; 2020-04-11 07:00)
DX: M51.06 Intervertebral disc disorders with myelopathy, lumbar region (principal); M96.89 Other intraoperative and postprocedural complications and disorders of the musculoskeletal system; M51.17 Intervertebral disc disorders with radiculopathy, lumbosacral region; Y83.8 Other surgical procedures as the cause of abnormal reaction of the patient, or of later complication, without mention of misadventure at the time of the procedure; Y82.8 Other medical devices associated with adverse incidents
CPT/HCPCS: 36415; 72020; 72100; 72131; 76000; 80048; 80076; 81025; 82962; 83735; 85018; 85025; 85610; 85730; 86703; 86704; 86705; 86706; 86708; 86709; 86803; 87081; 87340; 87635; 93005; 97161; 99251; C1713; C9803; J7120; A4216; G0463; J2405; J3475; U0003

== ENCOUNTER → 2020-06-01 07:59 | Outpatient (CLI) | payer OTHER, SELFPAY ==
[2020-04-11 05:38] VITALS: BMI 23.0
[2020-05-30 16:01] LABS: Anion Gap 5 (5-15); BUN 9 mg/dL (7-18); BUN/Creat Ratio 12.8 RATIO (10-20); Calcium,Total 8.5 mg/dL (8.5-10.1); Chloride 106 mmol/L (98-107); EST Glomerular Filtration Rate 96 mL/min (>60); Est Glom Filt Rate - Afr Amer 116 mL/min (>60); Glucose 83 mg/dL (74-106); Potassium 3.6 mmol/L (3.5-5.1); Sodium Level 138 mmol/L (136-145)
--- NOTE | 2020-06-01 08:06 | MRI_ITS ---
STUDY: MRI LUMBAR SPINE WITH AND WITHOUT CONTRAST REASON FOR EXAM: Female, 44 years old. LEFT foot drop, H/O MULTIPLE LUMBAR SURGERIES TECHNIQUE: Standardized fat and water weighted pulse sequences were obtained in the sagittal and axial planes. IV DOTAREM 11CC was administered for the contrast portion of the examination. COMPARISON: None FINDINGS: T12-L1: Normal endplates. Normal disc height, hydration and morphology. Normal bilateral facet joints. Normal central canal and bilateral lateral recesses. Normal bilateral intervertebral neural foramina. Normal lumbar lordosis. There is no substantial scoliosis. Normal conus medullaris that terminates at the L1-2: Normal endplates. Normal disc height, hydration and morphology. Normal bilateral facet joints. Normal central canal and bilateral lateral recesses. Normal bilateral intervertebral neural foramina. L2-3: Normal endplates. Normal disc height, hydration and morphology. Normal bilateral facet joints. Normal central canal and bilateral lateral recesses. Normal bilateral intervertebral neural foramina. L3-4: Normal endplates. Normal disc height, hydration and morphology. Normal bilateral facet joints. Normal central canal and bilateral lateral recesses. Normal bilateral intervertebral neural foramina. L4-5: Normal endplates. Normal disc height, hydration and morphology. Normal bilateral facet joints. Normal central canal and bilateral lateral recesses. Normal bilateral intervertebral neural foramina. L5-S1: Postoperative changes of the posterior elements at this level are present consistent with laminectomy with disc spacer in place showing likely normal alignment. There is fluid extension extending toward the left laminectomy site with noted surrounding enhancement concerning for early phlegmon/abscess abutting the left L5/S1 foramen and causing left foraminal centimeter severe narrowing obliterating the exiting nerve root and fat planes with focal fluid collection near the foramen measuring 10 mm as seen on series 9 image 10. Normal visualized sacral ala. Normal visualized paraspinous soft tissue structures. MRI/Spine Lumbar W/WO Contrast IMPRESSION: 1. Postoperative changes at L5/S1 with left laminectomy demonstrating fluid collection extending to the left foramen with surrounding enhancement concerning for early phlegmon/abscess versus inflamed seroma and likely surrounding scarring causing severe narrowing of the exiting nerve root L4-5 and likely resulting in patient''s left foot drop. Recommend surgical consultation for further assessment management. Electronically Signed: Brown Rios DO at 10:02 EST , Service support ,
== END ==
PROVIDERS: PCP Family Medicine; Referring Provider Anesthesiology Pain Medicine; Visit Provider Anesthesiology Pain Medicine
DX: M51.17 Intervertebral disc disorders with radiculopathy, lumbosacral region (principal)
CPT/HCPCS: 36415; 72158; 80048; A9575

== ENCOUNTER → 2021-01-15 08:14 | Outpatient (CLI) | payer OTHER, SELFPAY ==
[2020-10-09 07:55] VITALS: BMI 23.0
[2020-12-29 07:58] VITALS: BMI 23.0
--- NOTE | 2021-01-15 08:16 | BI_ITS ---
MAMMOGRAPHY - BILATERAL SCREENING REASON FOR EXAM: Female, 45 years old. Routine annual screening examination. PERTINENT HISTORY: Grandmother with breast cancer. TECHNIQUE: Digital bilateral breast austen (3D mammographic acquisition) in the CC and MLO projections. 2-D mediolateral oblique (MLO) and craniocaudad (CC) views of both breasts were obtained. CAD: Full Field Digital Mammography with Computer Added Detection was performed. COMPARISON: Comparison is made with prior study dated 12/24/2019 and 01/14/2019 FINDINGS: Breast Composition: The breasts are extremely dense, which lowers the sensitivity of mammography. There are no dominant masses or suspicious calcifications. Stable small benign-appearing bilateral axillary lymph nodes. No other significant abnormalities are identified. There has been no significant change since the prior study. BI/SCRN MAMM (CAD)W/AUSTEN BILAT IMPRESSION: Stable bilateral screening mammogram. Yearly follow-up mammogram recommended. (A) ASSESSMENT CATEGORY: BIRADS Category 2: Benign. A letter regarding these results will be sent to the patient by the facility within 30 days. Approximately 10% of breast cancers are not detected by mammography. A normal mammogram should not delay biopsy of a clinically suspicious abnormality. [id number] Electronically Signed: Larry Woo MD at 10:32 EDT , Service support ,
== END ==
PROVIDERS: PCP Family Medicine; Referring Provider Obstetrics & Gynecology; Visit Provider Obstetrics & Gynecology
DX: Z12.31 Encounter for screening mammogram for malignant neoplasm of breast (principal)
CPT/HCPCS: 77063; 77067

== ENCOUNTER → 2022-02-01 | Outpatient (CLI) | payer OTHER, SELFPAY ==
[2022-02-10 14:14] LABS: HPV APTIMA, High Risk Negative (Negative)
== END | disposition home or self-care (01) ==
LOC: LABSPEC 02-04 10:23
PROVIDERS: PCP Family Medicine; Visit Provider Obstetrics & Gynecology
DX: Z12.4 Encounter for screening for malignant neoplasm of cervix (principal)
CPT/HCPCS: 87624; 88175; G0145

== ENCOUNTER → 2022-05-30 | Outpatient (CLI) | payer OTHER, SELFPAY ==
--- NOTE | 2022-05-30 07:09 | BI_ITS ---
MAMMOGRAPHY - BILATERAL SCREENING REASON FOR EXAM: Female, 46 years old. Routine annual screening examination. PERTINENT HISTORY: Grandmother with breast cancer. TECHNIQUE: Digital bilateral breast austen (3D mammographic acquisition) in the CC and MLO projections. 2-D mediolateral oblique (MLO) and craniocaudad (CC) views of both breasts were obtained. CAD: Full Field Digital Mammography with Computer Added Detection was performed. COMPARISON: Comparison is made with prior study dated 01/15/2021 and 12/24/2019. FINDINGS: Breast Composition: The breasts are extremely dense, which lowers the sensitivity of mammography. There are no dominant masses or suspicious calcifications. Stable small benign-appearing bilateral axillary lymph nodes. No other significant abnormalities are identified. There has been no significant change since the prior study. BI/SCRN MAMM (CAD)W/AUSTEN BILAT IMPRESSION: Stable bilateral screening mammogram. Yearly follow-up mammogram recommended. (A) ASSESSMENT CATEGORY: BIRADS Category 2: Benign. A letter regarding these results will be sent to the patient by the facility within 30 days. Approximately 10% of breast cancers are not detected by mammography. A normal mammogram should not delay biopsy of a clinically suspicious abnormality. [id number] Electronically Signed: Larry Woo MD at 8:37 EST ,
== END | disposition home or self-care (01) ==
LOC: OPBI 07:07
PROVIDERS: PCP Family Medicine; Referring Provider Obstetrics & Gynecology; Visit Provider Obstetrics & Gynecology
DX: Z12.31 Encounter for screening mammogram for malignant neoplasm of breast (principal)
CPT/HCPCS: 77063; 77067

== ENCOUNTER → 2023-09-02 | Outpatient (CLI) | payer OTHER, SELFPAY ==
--- NOTE | 2023-09-02 07:41 | BI_ITS ---
MAMMOGRAPHY - BILATERAL SCREENING REASON FOR EXAM: Female, 48 years old. Routine annual screening examination. PERTINENT HISTORY: Grandmother with breast cancer. TECHNIQUE: Digital bilateral breast austen (3D mammographic acquisition) in the CC and MLO projections. 2-D mediolateral oblique (MLO) and craniocaudad (CC) views of both breasts were obtained. CAD: Full Field Digital Mammography with Computer Added Detection was performed. COMPARISON: Comparison is made with prior study dated May 30, 2022 and January 15, 2021. FINDINGS: Breast Composition: The breasts are extremely dense, which lowers the sensitivity of mammography. There are no dominant masses or suspicious calcifications. Stable small benign-appearing bilateral axillary lymph nodes. No other significant abnormalities are identified. There has been no significant change since the prior study. BI/SCRN MAMM (CAD)W/AUSTEN BILAT IMPRESSION: Stable bilateral screening mammogram. Yearly follow-up mammogram recommended. (A) ASSESSMENT CATEGORY: BIRADS Category 2: Benign. A letter regarding these results will be sent to the patient by the facility within 30 days. Approximately 10% of breast cancers are not detected by mammography. A normal mammogram should not delay biopsy of a clinically suspicious abnormality. [id number] Electronically Signed: Larry Woo MD at 11:02 EDT ,
== END | disposition home or self-care (01) ==
LOC: OPBI 07:40
PROVIDERS: PCP Family Medicine; Referring Provider Family Medicine; Visit Provider Family Medicine
DX: Z12.31 Encounter for screening mammogram for malignant neoplasm of breast (principal)
CPT/HCPCS: 77063; 77067

== ENCOUNTER → 2023-09-09 | Outpatient (CLI) | payer OTHER, SELFPAY ==
[2023-09-09 10:05] LABS: Absolute Lymphocyte Count 2.11 X10^3/uL (0.83-4.51); Absolute Neutrophil Count 2.9 X10^3/uL (2.0-7.7); Basophil# 0.05 X10^3/uL; Basophil% 0.9 % (0-1); Eosinophil# 0.09 X10^3/uL; Eosinophils% 1.6 % (0-5); Hematocrit 39.9 % (37-47); Hemoglobin 13.2 g/dL (12.0-15.0); Lymphocyte # 2.11 X10^3/ul (0.83-4.51); Lymphocyte % 37.7 % (19-41); Mean Corp Hgb Conc 33.1 g/dL (32-36); Mean Corpuscular Hgb 29.5 pg (27.0-32.0); Mean Corpuscular Volume 89.1 fL (81-99); Mean Platelet Vol. 10.5 fl (6.2-12.0); Monocyte# 0.44 X10^3/uL; Monocyte% 7.9 % (0-10); NRBC Flagged by Analyzer 0 % (0-5); Neutrophil # 2.89 X10^3/uL (2.7-7.7); Neutrophil % 51.5 % (47-70); Platelet Count 300 K/mm3 (150-450); RBC Distribution Width CV 11.8 % (11.6-14.6); RBC Distribution Width SD 37.9 fl (35.1-43.9); Red Blood Count 4.48 M/mm3 (4.2-5.4); White Blood Count 5.6 K/mm3 (4.4-11.0)
[2023-09-09 10:56] LABS: ALB/GLOB Ratio 1.1 RATIO (0.9-2.4); AST(SGOT) 16 U/L (15-37); Alanine Aminotransfer ALT/SGPT 19 U/L (13-56); Albumin, Serum 3.5 g/dL (3.2-5.0); Alkaline Phosphatase 60 U/L (45-117); Anion Gap 7 (5-15); BUN 9 mg/dL (7-18); BUN/Creat Ratio 10.6 RATIO (10-20); Calcium,Total 8.4 mg/dL (8.5-10.1); Chloride 107 mmol/L (98-107); Cholesterol 205 mg/dL (200); Creatinine, Serum 0.85 mg/dL (0.55-1.02); EST Glomerular Filtration Rate 76 mL/min (>60); Est Glom Filt Rate - Afr Amer 92 mL/min (>60); Globulin 3.3 g/dL (2.2-4.2); Glucose 88 mg/dL (74-106); High Density Lipoprotein 61 mg/dL; Potassium 3.9 mmol/L (3.5-5.1); Protein, Total 6.8 g/dL (6.4-8.2); Sodium Level 139 mmol/L (136-145); Thyroid Stim Hormone (TSH) 2.03 uIU/mL (0.358-3.74); Triglycerides 100 mg/dL; Very Low Density Lipoprotein 20 mg/dL (5-40)
[2023-09-09 10:59] LABS: Protein, Urine (Random) 10.5 mg/dL (<11.9); Protein:Creat Ratio 70 mg/g CRE (0-200)
== END | disposition home or self-care (01) ==
LOC: MTLAB 07:38
PROVIDERS: PCP Family Medicine; Referring Provider Family Medicine; Visit Provider Family Medicine
DX: Z00.00 Encounter for general adult medical examination without abnormal findings (principal); I10 Essential (primary) hypertension
CPT/HCPCS: 36415; 80053; 80061; 82570; 84156; 84443; 85025

== ENCOUNTER → 2024-08-31 | Outpatient (CLI) | payer OTHER, SELFPAY ==
[2024-08-31 16:12] LABS: Absolute Lymphocyte Count 2.16 X10^3/uL (0.83-4.51); Absolute Neutrophil Count 3.1 X10^3/uL (2.0-7.7); Basophil# 0.03 X10^3/uL; Basophil% 0.5 % (0-1); Eosinophil# 0.15 X10^3/uL; Eosinophils% 2.5 % (0-5); Hematocrit 41.8 % (37-47); Hemoglobin 13.8 g/dL (12.0-15.0); Lymphocyte # 2.16 X10^3/ul (0.83-4.51); Lymphocyte % 36.6 % (19-41); Mean Corpuscular Hgb 29.7 pg (27.0-32.0); Mean Corpuscular Volume 89.9 fL (81-99); Mean Platelet Vol. 10.2 fl (6.2-12.0); Monocyte# 0.41 X10^3/uL; Monocyte% 6.9 % (0-10); NRBC Flagged by Analyzer 0 % (0-5); Neutrophil # 3.13 X10^3/uL (2.7-7.7); Neutrophil % 53.2 % (47-70); Platelet Count 289 K/mm3 (150-450); RBC Distribution Width SD 39.6 fl (35.1-43.9); Red Blood Count 4.65 M/mm3 (4.2-5.4); White Blood Count 5.9 K/mm3 (4.4-11.0)
[2024-08-31 16:59] LABS: ALB/GLOB Ratio 1.6 RATIO (0.9-2.4); AST(SGOT) 34 U/L (<=31); Alanine Aminotransfer ALT/SGPT 34 U/L (<=34); Albumin, Serum 4.3 g/dL (3.5-5.0); Alkaline Phosphatase 85 U/L (35-104); Anion Gap 11 (5-15); BUN 8 mg/dL (4-19); BUN/Creat Ratio 9.8 RATIO (10-20); Calcium,Total 8.6 mg/dL (7.6-11.0); Carbon Dioxide 24.7 mmol/L (21.0-32.0); Chloride 102 mmol/L (98-108); Creatinine, Serum 0.83 mg/dL (0.70-1.20); EST Glomerular Filtration Rate 87 (>60); Globulin 2.6 g/dL (2.2-4.2); Glucose 89 mg/dL (70-99); Potassium 4.4 mmol/L (3.3-5.1); Protein, Total 6.9 g/dL (5.9-8.4); Protein, Urine (Random) 8.2 mg/dL (0.0-12.0); Protein:Creat Ratio 80 mg/g CRE (0-200); Sodium Level 137 mmol/L (133-145); Total Bilirubin 0.42 mg/dL (0.00-1.30)
== END | disposition home or self-care (01) ==
PROVIDERS: PCP Family Medicine; Visit Provider Family Medicine
DX: Z00.00 Encounter for general adult medical examination without abnormal findings (principal); I10 Essential (primary) hypertension
CPT/HCPCS: 36415; 80053; 82570; 84156; 85025

== ENCOUNTER → 2024-09-06 | Outpatient (CLI) | payer OTHER, SELFPAY ==
--- NOTE | 2024-09-06 14:59 | BI_ITS ---
EXAM: SCRN MAMM (CAD)W/AUSTEN BILAT DATE: 09/06/2024 CLINICAL HISTORY: F, Age 49 y/o , SCREENING BREAST CANCER RISK ASSESSMENT: Has not been calculated. TECHNIQUE: Bilateral screening digital breast tomosynthesis with 2D and 3D images. Computer aided detection. COMPARISON: Prior exam(s) dated 09/02/2023 and 05/30/2022. FINDINGS: TISSUE DENSITY: The breast tissue is extremely dense which lowers the sensitivity of mammography. Bilateral Breast Mammographic Findings: There are no suspicious masses, suspicious clustered microcalcifications, architectural distortion or secondary signs of malignancy identified in either breast. Benign-appearing round microcalcifications are seen in both breast. Stable nodular masslike densities are seen. BI/SCRN MAMM (CAD)W/AUSTEN BILAT IMPRESSION: Right Breast: BIRADS 2 BENIGN FINDING. Left Breast: BIRADS 2 BENIGN FINDING. OVERALL FINAL ASSESSMENT: BIRADS 2 BENIGN FINDING RECOMMENDATION: Routine annual follow-up in 1 Year A letter with findings and recommendations will be mailed to the patient. Reading Location: [id number]
== END | disposition home or self-care (01) ==
LOC: OPBI 14:57
PROVIDERS: PCP Family Medicine; Referring Provider Family Medicine; Visit Provider Family Medicine
DX: Z12.31 Encounter for screening mammogram for malignant neoplasm of breast (principal)
CPT/HCPCS: 77063; 77067